=== PATIENT | male | born 1965 | race Caucasian/White ===

== ENCOUNTER 2017-06-20 06:04 | Emergency (ER) | payer MEDICARE, OTHER ==
[2017-06-20] MEDS ORDERED: Sodium Chloride 0.9% 1,000 ML IV STA (06:21)
[2017-06-20 06:22] VITALS: RESP 16
--- NOTE | 2017-06-20 06:24 | C.PDOC ---
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 Patient denies any PMHx, recent sick contact/travel, fever, or chills. Hx obtain via patient care. Chief Complaint (Nursing): Abdominal Pain History Per: Um Nurse History/Exam Limitations: no limitations Onset/Duration Of Symptoms: Hrs Current Symptoms Are (Timing): Still Present Location Of Pain/Discomfort: Epigastric Radiation Of Pain To:: None Quality Of Discomfort: Unable To Describe Associated Symptoms: Nausea, Vomiting Exacerbating Factors: None Alleviating Factors: None Recent travel outside of the [place]: No Past Medical History Reviewed: Historical Data, Nursing Documentation, Vital Signs Vital Signs: Last Vital Signs Temp 98.3 F 06/20/17 06:19 Pulse 69 06/20/17 06:19 Resp 16 06/20/17 06:19 BP 182/98 H 06/20/17 06:19 Pulse Ox 99 06/20/17 06:43 - Medical History PMH: No Chronic Diseases Surgical History: No Surg Hx Family History: States: Unknown Family Hx - Social History Hx Tobacco Use: No Hx Alcohol Use: Yes Hx Substance Use: No - Immunization History Hx Tetanus Toxoid Vaccination: No Hx Influenza Vaccination: No Hx Pneumococcal Vaccination: No Review Of Systems Constitutional: Negative for: Fever, Chills Gastrointestinal: Positive for: Nausea, Vomiting, Abdominal Pain Neurological: Positive for: Dizziness Physical Exam - Physical Exam Appears: Non-toxic, No Acute Distress Skin: Normal Color, Warm, Dry Head: Atraumatic, Normacephalic Eye(s): bilateral: Normal Inspection, PERRL, EOMI Oral Mucosa: Moist Chest: Symmetrical, No Tenderness Cardiovascular: Rhythm Regular, No Murmur Respiratory: Normal Breath Sounds, No Rales, No Rhonchi, No Wheezing Gastrointestinal/Abdominal: Soft, Tenderness (Epigastric) Neurological/Psych: Other (At baseline) ED Course And Treatment - Laboratory Results Result Diagrams: 06/20/17 06:29 O2 Sat by Pulse Oximetry: 99 (Room air) Pulse Ox Interpretation: Normal Progress Note: Head CT, EKG, blood work, CXR, urinalysis, and abdominal US ordered. Pepcid, zofran, and IV fluids administered. Disposition - Disposition Disposition Time: 07:00 Condition: FAIR Forms: [facility] (Gibraltarian) - Clinical Impression Clinical Impression: Nausea, Vomiting, Abdominal pain, Dizziness - Scribe Statement The provider has reviewed the documentation as recorded by the Scribeduar Berry All medical record entries made by the Scribe were at my direction and personally dictated by me. I have reviewed the chart and agree that the record accurately reflects my personal performance of the history, physical exam, medical decision making, and the department course for this patient. I have also personally directed, reviewed, and agree with the discharge instructions and disposition. Physician Patient Turnover Patient Signed Over To: Loren Cullen Handoff Comments: labs, abdominal US and head CT pending
[2017-06-20] MEDS ORDERED: Sodium Chloride 0.9% 1,000 ML ONE (06:28)
[2017-06-20 06:39] LABS: BASO # 0.1 K/uL (0.0-0.2); BASO % 1.4 % (0.0-2.0); EOS # 0.3 K/uL (0.0-0.7); EOS % 5.7 % (0.0-4.0); LYMPH # 2.6 K/uL (1.0-4.3); LYMPH % 49.3 % (20.0-40.0); MEAN CELL VOLUME 81.4 fL (80.0-94.0); MEAN CORPUSCULAR HEMOGLOBIN 26.2 pg (27.0-31.0); MEAN CORPUSCULAR HGB CONC 32.2 g/dL (33.0-37.0); MEAN PLATELET VOLUME 10.5 fL (7.2-11.7); MONO # 0.6 K/uL (0.0-0.8); MONO % 10.9 % (0.0-10.0); NRBC % 0.1 % (0.0-2.0); RED CELL DISTRIBUTION WIDTH 14.2 % (11.5-14.5); WHITE BLOOD COUNT 5.2 K/uL (4.8-10.8)
[2017-06-20 06:46] LABS: ALB/GLOB RATIO 1.3 (1.0-2.1); ALKALINE PHOSPHATASE 71 U/L (38-126); ALT/SGPT 25 U/L (21-72); AMYLASE 158 U/L (30-110); AST/SGOT 23 U/L (17-59); BILIRUBIN,TOTAL 0.4 mg/dL (0.2-1.3); BLOOD UREA NITROGEN 18 mg/dL (9-20); CALCIUM 9.5 mg/dl (8.6-10.4); CARBON DIOXIDE 28 mmol/L (22-30); CHLORIDE 99 mmol/L (98-107); GFR AFRICAN-AMERICAN > 60; GLUCOSE,RANDOM 93 mg/dL (75-110); POTASSIUM 3.7 mmol/L (3.6-5.2); SODIUM 139 mmol/L (132-148); TOTAL PROTEIN 7.4 g/dL (6.3-8.3)
[2017-06-20 06:55] LABS: URINE BILIRUBIN NEGATIVE (NEGATIVE); URINE COLOR STRAW (YELLOW); URINE GLUCOSE (UA) Normal (Normal)
[2017-06-20 06:56] LABS: URINE BLOOD 2+ (NEGATIVE); URINE KETONE NEGATIVE (NEGATIVE); URINE PROTEIN NEGATIVE (NEGATIVE); URINE UROBILINOGEN Normal mg/dL (0.2-1.0)
[2017-06-20 06:57] LABS: RBC URINE 10 /hpf (0-3); URINE LEUKOCYTE ESTERASE NEGATIVE Leu/uL (Negative); WBC URINE 2 /hpf (0-5)
--- NOTE | 2017-06-20 08:50 | CT ---
PROCEDURE: CT HEAD WITHOUT CONTRAST. HISTORY: dizzy, N/V COMPARISON: None available. TECHNIQUE: Axial computed tomography images were obtained through the head/brain without intravenous contrast. Radiation dose: Total exam DLP = 696.77 mGy-cm. This CT exam was performed using one or more of the following dose reduction techniques: Automated exposure control, adjustment of the mA and/or kV according to patient size, and/or use of iterative reconstruction technique. FINDINGS: HEMORRHAGE: No acute parenchymal, subarachnoid nor extra-axial hemorrhage. BRAIN: No evidence of large acute infarct. No obvious parenchymal nor extra-axial masses or collections seen on this noncontrast study. Mild central volume loss evidenced by slight disproportionate enlargement of ventricles as compared sulci. Uppercase move VENTRICLES: No obstructive hydrocephalus CALVARIUM: Calvarium appears grossly intact. PARANASAL SINUSES: Visualized paranasal sinuses currently well-aerated. MASTOID AIR CELLS: Unremarkable as visualized. No inflammatory changes. OTHER FINDINGS: None. IMPRESSION: No acute intracranial hemorrhage. Mild central volume loss.
[2017-06-20 09:01] VITALS: TEMP 97.6
--- NOTE | 2017-06-20 09:31 | US ---
HISTORY: Pain epigastric COMPARISON: None. TECHNIQUE: Sonographic evaluation of the right upper quadrant of the abdomen. FINDINGS: LIVER: Measures approximately 12.8 cm cm in CC dimension . smooth contour and normal echogenicity of the liver parenchyma. No mass. No intrahepatic bile duct dilatation. GALLBLADDER: Gallbladder is physiologically distended. No evidence of intraluminal gallbladder calculi, wall thickening pericholecystic fluid collections or sonographic Levi sign. COMMON BILE DUCT: Measures 3.1 mm. No stones. No dilatation. PANCREAS: Unremarkable as visualized. No mass. No ductal dilatation. RIGHT KIDNEY: Measures approximately 9.6 x 4.9 x 5.1 cm in length. Normal echogenicity. No calculus, mass, or hydronephrosis. AORTA: No aneurysmal dilatation. IVC: Unremarkable. OTHER FINDINGS: None . IMPRESSION: Grossly unremarkable limited right upper quadrant abdominal ultrasound as above.
--- NOTE | 2017-06-20 09:40 | RAD ---
PROCEDURE: CHEST RADIOGRAPH, 1 VIEW HISTORY: dizzy COMPARISON: Comparison chest dated 12/07/2012 FINDINGS: LUNGS: Suspect minor left basilar atelectasis. PLEURA: No pneumothorax or pleural fluid seen. CARDIOVASCULAR: Heart appears mildly enlarged. OSSEOUS STRUCTURES: Minor multilevel degenerative spondylosis of the thoracic spine. Gadiel/ 1st VISUALIZED UPPER ABDOMEN: Normal. OTHER FINDINGS: None. IMPRESSION: Suspect minor left basilar atelectasis.
[2017-06-20 10:39] VITALS: BP 149/97; PULSE 58; O2SAT 99
--- NOTE | 2017-06-22 11:50 | CARD ---
APPROVED REPORT EKG Measurement Heart [id number] <Conclusion> Normal sinus rhythm Normal ECG
== END 2017-06-20 11:48 | disposition home or self-care (01) ==
LOC: C.ER 06:04
DX: R42 Dizziness and giddiness (principal); R11.2 Nausea with vomiting, unspecified; R10.9 Unspecified abdominal pain
CPT/HCPCS: 70450; 71010; 76705; 80053; 81001; 82150; 82550; 82553; 83690; 84484; 85025; 96374; 96375; 99285; J2405; J2765; J7040

== ENCOUNTER 2017-06-23 20:33 | Emergency (ER) | payer MEDICARE, OTHER ==
[2017-06-23 20:48] VITALS: TEMP 98.1
--- NOTE | 2017-06-23 21:03 | C.PDOC ---
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 Patient was seen on 06/20 for the same symptoms and abdominal pain; ABD US and head CT were both negative at that time. Patient states his current headache is similar to prior episodes; he describes it as being constant and generalized. He also notes he "feels hot everywhere"; denies nausea, vomiting, focal weakness, or focal numbness. Patient has not taken any medication for the pain. Hx obtained via counter tender [employer]. VIA GERIATRIC PHYSICAL THERAPIST [id number] RECUR MELCHOR TODAY. SEEN 06/20 FOR SAME AND ABD PAIN. ABD US AND HEAD CT NEG. PS CURRENT MELCHOR SIM TO PRIOR. CONSTANT GENERALIZED. "I FEEL HOT EVERYWHERE". NO NV, FOCAL WEAK NUMB. NO MEDS TRIED FOR MELCHOR. EXAM MILD DIST NONTOXIC HEENT NO PHOTOPHOBIA NO MENINGISMUS NEURO INTACT REMAINDER NEG Time Seen by Provider: 06/23/17 20:39 History Per: Patient History/Exam Limitations: no limitations Onset/Duration Of Symptoms: Days Current Symptoms Are (Timing): Still Present Preceeding Symptoms: None Associated Symptoms: denies: Photophobia, Blurred Vision, Nausea, Vomiting, Extremity Weakness Recent travel outside of the [place]: No Past Medical History Reviewed: Historical Data, Nursing Documentation, Vital Signs Vital Signs: Last Vital Signs Temp 98.1 F 06/23/17 20:47 Pulse 65 06/23/17 21:54 Resp 20 06/23/17 21:54 BP 159/93 H 06/23/17 21:54 Pulse Ox 98 06/23/17 22:01 - Medical History PMH: No Chronic Diseases Surgical History: No Surg Hx Family History: States: Unknown Family Hx - Social History Hx Tobacco Use: No Hx Alcohol Use: Yes Hx Substance Use: No - Immunization History Hx Tetanus Toxoid Vaccination: No Hx Influenza Vaccination: No Hx Pneumococcal Vaccination: No Review Of Systems Constitutional: Negative for: Fever, Chills Eyes: Negative for: Vision Change Gastrointestinal: Negative for: Nausea, Vomiting Neurological: Positive for: Headache. Negative for: Weakness, Numbness, Dizziness Physical Exam - Physical Exam Appears: Non-toxic, Other (Mild distress) Skin: Normal Color, Warm, Dry Head: Atraumatic, Normacephalic Eye(s): bilateral: Normal Inspection, PERRL, EOMI Oral Mucosa: Moist Neck: Normal, Supple (Nonmeningismus) Chest: Symmetrical, No Tenderness Cardiovascular: Rhythm Regular, No Murmur Respiratory: No Accessory Muscle Use, No Wheezing Gastrointestinal/Abdominal: Soft, No Tenderness Neurological/Psych: Oriented x3, Normal Cognition, Normal Motor, Normal Sensation, Other (No focal deficits) ED Course And Treatment O2 Sat by Pulse Oximetry: 98 (Room air) Pulse Ox Interpretation: Normal Progress - Re-Evaluation Re-evaluation Note: 06/23/17 23:19 FEELS BETTER. NEURO INTACT. VSS - Data Reviewed Data Reviewed: Diagnostic imaging, Old records Medical Decision Making Medical Decision Making: Plan: * Toradol * Reglan * Tylenol Disposition Counseled Patient/Family Regarding: Studies Performed, Diagnosis, Need For Followup, Rx Given - Disposition Referrals: [facility] [Outside] [facility] [Outside] Disposition: HOME/ ROUTINE Disposition Time: 23:19 Condition: IMPROVED Additional Instructions: YOU MUST FOLLOW UP IN CLINIC. CALL TO MAKE AN APPOINTMENT. Prescriptions: Acetaminophen [Tylenol Extra Strength] 2 tab PO Q6 #30 tablet Ibuprofen [Motrin] 400 mg PO QID #30 tab Instructions: Acute Headache (ED) Forms: [facility] (Bermudian) - Clinical Impression Clinical Impression: Headache - Scribe Statement The provider has reviewed the documentation as recorded by the Scribeduar Berry All medical record entries made by the Scribe were at my direction and personally dictated by me. I have reviewed the chart and agree that the record accurately reflects my personal performance of the history, physical exam, medical decision making, and the department course for this patient. I have also personally directed, reviewed, and agree with the discharge instructions and disposition.
[2017-06-23 21:55] VITALS: BP 159/93; PULSE 65; RESP 20
[2017-06-23 21:56] VITALS: O2SAT 98
--- NOTE | 2017-06-23 22:46 | CT ---
EXAM: CT Head Without Intravenous Contrast CLINICAL HISTORY: 52 years old, male; Pain; Headache; Headache not specified; Additional info: Persist MELCHOR please compare w 06/20 TECHNIQUE: Axial computed tomography images of the head/brain without intravenous contrast. All CT scans at this facility use one or more dose reduction techniques, viz.: automated exposure control; ma/kV adjustment per patient size (including targeted exams where dose is matched to indication; i.e. head); or iterative reconstruction technique. COMPARISON: No relevant prior studies available. FINDINGS: Brain: Mild atrophy. No intracranial hemorrhage. No mass. No definite edema. Ventricles: No hydrocephalus. Bones/joints: No acute fracture. Soft tissues: Unremarkable. Sinuses: No acute sinusitis. Mastoid air cells: No mastoid effusion. Orbits: Unremarkable as visualized. IMPRESSION: 1. No definite acute intracranial abnormality. 2. If symptoms persist, consider MRI for further evaluation.
== END 2017-06-23 23:30 | disposition home or self-care (01) ==
LOC: C.ER 20:33
DX: R51 Headache (principal)
CPT/HCPCS: 70450; 96372; 99284; J1885; J2765

== ENCOUNTER 2018-02-06 15:25 | Emergency (ER) | payer MEDICARE, OTHER ==
[2018-02-06 16:10] LABS: BASO % 0.8 % (0.0-2.0); EOS # 0.2 K/uL (0.0-0.7); EOS % 4.4 % (0.0-4.0); HEMOGLOBIN 13.6 g/dL (12.0-18.0); LYMPH # 1.5 K/uL (1.0-4.3); MEAN CELL VOLUME 82.6 fL (80.0-94.0); MEAN CORPUSCULAR HEMOGLOBIN 27.3 pg (27.0-31.0); MEAN PLATELET VOLUME 10.2 fL (7.2-11.7); MONO # 0.5 K/uL (0.0-0.8); MONO % 10.7 % (0.0-10.0); NEUT # 2.8 K/uL (1.8-7.0); NEUT % 54.1 % (50.0-75.0); RBC 4.97 Mil/uL (4.40-5.90); RED CELL DISTRIBUTION WIDTH 14.2 % (11.5-14.5); WHITE BLOOD COUNT 5.1 K/uL (4.8-10.8)
[2018-02-06 16:22] LABS: ALB/GLOB RATIO 1.2 (1.0-2.1); ALBUMIN 4.3 g/dL (3.5-5.0); ALT/SGPT 23 U/L (21-72); AST/SGOT 26 U/L (17-59); BLOOD UREA NITROGEN 12 mg/dL (9-20); GFR AFRICAN-AMERICAN > 60; GFR NON-AFRICAN AMERICAN > 60
[2018-02-06 16:29] VITALS: RESP 18
[2018-02-06 17:38] VITALS: BP 123/96; PULSE 74; TEMP 98; O2SAT 98
--- NOTE | 2018-02-06 17:52 | C.PDOC ---
History Of Present Illness 52 year old male, with no significant PMHx, presents to the ED for evaluation of sharp chest pain which began at 1300 today. Patient states he was slightly dizzy during the onset of symptoms. Patient states he is currently asymptomatic and denies cough, abdominal pain, nausea, and vomiting. Chief Complaint (Nursing): Chest Pain History Per: Gis Professor History/Exam Limitations: other (patient is deaf/mute) Current Symptoms Are (Timing): Gone Quality: Sharp, "Pain" Associated Symptoms: denies: Nausea Additional History Per: Patient Past Medical History Reviewed: Historical Data, Nursing Documentation, Vital Signs Vital Signs: Last Vital Signs Temp 98 F 02/06/18 17:37 Pulse 74 02/06/18 17:37 Resp 18 02/06/18 17:37 BP 123/96 H 02/06/18 17:37 Pulse Ox 98 02/06/18 18:01 - Medical History PMH: No Chronic Diseases Surgical History: No Surg Hx Family History: States: Unknown Family Hx - Social History Hx Tobacco Use: No Hx Alcohol Use: No Hx Substance Use: No - Immunization History Hx Tetanus Toxoid Vaccination: No Hx Influenza Vaccination: No Hx Pneumococcal Vaccination: No Review Of Systems Cardiovascular: Positive for: Chest Pain Respiratory: Negative for: Cough Gastrointestinal: Negative for: Nausea, Vomiting, Abdominal Pain Neurological: Positive for: Dizziness Physical Exam - Physical Exam Appears: Non-toxic, No Acute Distress Skin: Normal Color, Warm, Dry Head: Atraumatic, Normacephalic Eye(s): bilateral: Normal Inspection Oral Mucosa: Moist Neck: Supple Chest: Symmetrical, No Deformity, No Tenderness Cardiovascular: Rhythm Regular, No Murmur Respiratory: Normal Breath Sounds, No Rales, No Rhonchi, No Wheezing Extremity: Normal ROM, Capillary Refill (less than 2 seconds ) Neurological/Psych: Oriented x3, Normal Speech, Normal Cognition ED Course And Treatment - Laboratory Results Result Diagrams: 02/06/18 16:05 02/06/18 16:05 ECG: Interpreted By Me, Viewed By Me ECG Rhythm: Sinus Rhythm Interpretation Of ECG: Normal Sinus Rhythm at 75bpm. Rate From EC O2 Sat by Pulse Oximetry: 98 (on RA) Pulse Ox Interpretation: Normal Medical Decision Making Medical Decision Making: Impression: 52 year old male with chest pain Plan: * bloodwork * CXR * EKG * reassess and disposition Progress: bloodwork, CXR, and EKG ordered and reviewed. Disposition - Disposition Referrals: [facility] [Outside] [facility] [Outside] Disposition: HOME/ ROUTINE Disposition Time: 17:00 Condition: GOOD Additional Instructions: Thank you for letting us take care of you today. The emergency medical care you received today was directed at your acute symptoms. If you were prescribed any medication, please fill it and take as directed. It may take several days for your symptoms to resolve. Return to the Emergency Department if your symptoms worsen, do not improve, or if you have any other problems. Please contact your doctor or call one of the physicians/clinics you have been referred to that are listed on the Patient Visit Information form that is included in your discharge packet. Bring any paperwork you were given at discharge with you along with any medications you are taking to your follow up visit. Our treatment cannot replace ongoing medical care by a primary care provider (PCP) outside of the emergency department. Thank you for allowing the [email or web address] team to be part of your care today. Follow up with the clinic in 3-4 days for outpatient care. Instructions: Chest Pain That Is Not Caused by the Heart (DC) Forms: [facility] (Divehi) - Clinical Impression Clinical Impression: Non-cardiac chest pain - Scribe Statement The provider has reviewed the documentation as recorded by the Scribe (Stephanie Badillo) Provider Attestation: All medical record entries made by the Scribe were at my direction and personally dictated by me. I have reviewed the chart and agree that the record accurately reflects my personal performance of the history, physical exam, medical decision making, and the department course for this patient. I have also personally directed, reviewed, and agree with the discharge instructions and disposition.
--- NOTE | 2018-02-06 18:56 | RAD ---
PROCEDURE: CHEST RADIOGRAPH, 1 VIEW HISTORY: chest pain COMPARISON: 06/20/2017 FINDINGS: LUNGS: Clear. PLEURA: No pneumothorax or pleural fluid seen. CARDIOVASCULAR: No radiographic findings to suggest acute or significant cardiovascular disease. OSSEOUS STRUCTURES: No significant abnormalities. VISUALIZED UPPER ABDOMEN: Normal. OTHER FINDINGS: None. IMPRESSION: No active disease. No acute/significant interval changes.
--- NOTE | 2018-02-07 12:14 | CARD ---
APPROVED REPORT EKG Measurement Heart [id number] <Conclusion> Normal sinus rhythm Normal ECG
== END 2018-02-06 17:38 | disposition home or self-care (01) ==
LOC: C.ER 15:25
DX: R07.89 Other chest pain (principal)

== ENCOUNTER 2018-05-12 15:15 | Emergency (ER) | payer MEDICARE, OTHER ==
[2018-05-12] MEDS ORDERED: Sodium Chloride 0.9% 1,000 ML IV ONE (16:30)
[2018-05-12 16:59] LABS: BASO # 0.1 K/uL (0.0-0.2); BASO % 1.1 % (0.0-2.0); EOS # 0.1 K/uL (0.0-0.7); EOS % 1.6 % (0.0-4.0); LYMPH # 1.8 K/uL (1.0-4.3); LYMPH % 29.9 % (20.0-40.0); MEAN CELL VOLUME 82.3 fL (80.0-94.0); MEAN CORPUSCULAR HEMOGLOBIN 27.1 pg (27.0-31.0); MEAN CORPUSCULAR HGB CONC 32.9 g/dL (33.0-37.0); MEAN PLATELET VOLUME 10.4 fL (7.2-11.7); MONO # 0.6 K/uL (0.0-0.8); MONO % 10.7 % (0.0-10.0); NEUT # 3.4 K/uL (1.8-7.0); NEUT % 56.7 % (50.0-75.0); RBC 5.17 Mil/uL (4.40-5.90); RED CELL DISTRIBUTION WIDTH 14.1 % (11.5-14.5); WHITE BLOOD COUNT 5.9 K/uL (4.8-10.8)
[2018-05-12] MEDS ORDERED: Iohexol 300 100 ML IJ ONE (17:07)
[2018-05-12] MEDS ORDERED: Morphine 4 MG/ML VIAL ONE (17:11)
[2018-05-12] MEDS ORDERED: Sodium Chloride 0.9% 1,000 ML ONE (17:11)
[2018-05-12 17:17] LABS: ALB/GLOB RATIO 1.5 (1.0-2.1); ALBUMIN 4.7 g/dL (3.5-5.0); ALT/SGPT 35 U/L (21-72); AST/SGOT 37 U/L (17-59); BLOOD UREA NITROGEN 13 mg/dL (9-20); CALCIUM 9.6 mg/dl (8.6-10.4); GFR AFRICAN-AMERICAN > 60; GFR NON-AFRICAN AMERICAN > 60; LIPASE 156 U/L (23-300)
[2018-05-12 17:33] LABS: URINE BACTERIA RARE (<OCC); URINE BILIRUBIN NEGATIVE (NEGATIVE); URINE CLARITY Clear (Clear); URINE COLOR Yellow (YELLOW); URINE GLUCOSE (UA) NORMAL (Normal); URINE LEUKOCYTE ESTERASE NEG Leu/uL (Negative); URINE PROTEIN NEGATIVE (NEGATIVE); URINE UROBILINOGEN NORMAL mg/dL (0.2-1.0)
[2018-05-12 17:36] LABS: URINE BLOOD 3+ (NEGATIVE)
--- NOTE | 2018-05-12 17:44 | C.PDOC ---
History Of Present Illness 53 y/o male presents to the ED with complaints of a dry throat, non-productive cough, left-sided chest pain that began earlier today (now resolved), and currently RLQ pain that is constant and nonradiating. He denies associated vomiting, diarrhea, shortness of breath, dysuria/hematuria, fever, testicular pain. Time Seen by Provider: 05/12/18 16:15 Chief Complaint (Nursing): Abdominal Pain History Per: [employer]ios[employer] Operator (sign language, pt mute/deaf) History/Exam Limitations: no limitations Onset/Duration Of Symptoms: Days Current Symptoms Are (Timing): Still Present Past Medical History Reviewed: Historical Data, Nursing Documentation, Vital Signs Vital Signs: Last Vital Signs Temp 98.3 F 05/12/18 15:35 Pulse 67 05/12/18 17:23 Resp 18 05/12/18 17:23 BP 158/99 H 05/12/18 17:23 Pulse Ox 100 05/12/18 18:57 - Medical History Other PMH: Deafness Surgical History: No Surg Hx Family History: States: No Known Family Hx - Social History Hx Tobacco Use: No Hx Alcohol Use: Yes Hx Substance Use: No - Immunization History Hx Tetanus Toxoid Vaccination: No Hx Influenza Vaccination: No Hx Pneumococcal Vaccination: No Review Of Systems Constitutional: Negative for: Fever ENT: Positive for: Throat Pain (dry throat) Cardiovascular: Positive for: Chest Pain (now resolved) Respiratory: Positive for: Cough. Negative for: Shortness of Breath, Sputum Gastrointestinal: Positive for: Abdominal Pain (RLQ/right groin). Negative for : Vomiting, Diarrhea Genitourinary: Negative for: Dysuria Physical Exam - Physical Exam Appears: Well, Non-toxic, Other (in mild pain) Skin: Normal Color, Warm, Dry, No Rash Eye(s): bilateral: Normal Inspection Oral Mucosa: Moist Throat: Normal, No Erythema, No Exudate Neck: Supple Cardiovascular: Rhythm Regular Respiratory: Normal Breath Sounds, No Rales, No Rhonchi, No Wheezing Gastrointestinal/Abdominal: Soft, Tenderness ((+) RLQ and right inguinal TTP), No Guarding, No Rebound, Other (Area of mild swelling to right inguinal area, ? hernia, with no erythema or skin changes) Back: Normal Inspection, No CVA Tenderness Extremity: Bilateral: Atraumatic, Normal ROM Neurological/Psych: Oriented x3 ED Course And Treatment - Laboratory Results Result Diagrams: 05/12/18 16:56 05/12/18 16:56 O2 Sat by Pulse Oximetry: 100 (RA) Pulse Ox Interpretation: Normal - CT Scan/US ct abd/pelvis Other Rad Studies (CT/US): Read By Radiologist, Radiology Report Reviewed CT/US Interpretation: Dictator : Jayme Noyola MD. Pet House Sitter : Accredited Pharmacy Technician : Jayme Noyola MD. Approver2 : Report Date : 05/12/2018 18:46: 43. My Comment : . Date of service: 05/12/2018. PROCEDURE: CT Abdomen and Pelvis with contrast. HISTORY: rlq pain r/o appy vs inguinal hernia. COMPARISON: Comparison is made to the previous study dated 12/27/2015. TECHNIQUE: Contrast dose: 100 cc of Omnipaque 300. . Axial and reformatted coronal sagittal CT images of the abdomen and pelvis were obtained after IV contrast administration. Radiation dose: Total exam DLP = 231.91 mGy-cm. This CT exam was performed using one or more of the following dose reduction techniques: Automated exposure control, adjustment of the mA and/or kV according to patient size, and/or use of iterative reconstruction technique. FINDINGS: LOWER THORAX: Unremarkable. LIVER: Unremarkable. No gross lesion or ductal dilatation. GALLBLADDER AND BILE DUCTS: Unremarkable. PANCREAS: Unremarkable. No gross lesion or ductal dilatation. SPLEEN: Unremarkable. ADRENALS: Unremarkable. No mass. KIDNEYS AND URETERS: Unremarkable. No hydronephrosis. No solid mass. VASCULATURE: Unremarkable. No aortic aneurysm. BOWEL: The assessment of the GI system is suboptimal without oral contrast administration. 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 There is filling defect in the cecum which represent large fecal ball versus mass lesion. No evidence of small bowel obstruction. Colonic diverticulosis are seen diffusely in the large bowel without definite evidence of diverticulitis. APPENDIX: No evidence of appendicitis. The appendix is normal in size and shape. PERITONEUM : Unremarkable. No free fluid. No free air. LYMPH NODES: Unremarkable. No enlarged lymph nodes. BLADDER: Mild urinary bladder wall thickening. REPRODUCTIVE: Prostate is enlarged. BONES: No acute fracture. OTHER FINDINGS : None. IMPRESSION: No evidence of appendicitis. Suspicious for cecal wall pneumatosis. Large fecal ball versus less likely mass at the cecum. If clinically warranted follow-up assessment of the large bowel by barium enema or colonoscopy. Colonic diverticulosis without evidence of diverticulitis. Progress Note: Blood work, UA, CT scan abd/pelvis with IV contrast ordered and reviewed. Patient given IV NS bolus, IV morphine, IV zofran. 6:50pm- Spoke with Dr. Chavis about CT scan result, would like surgery resident to come evaluate patient. Resident paged. Disposition - Disposition Disposition Time: 19:00 Condition: STABLE Forms: [facility] (Kenyan) - Clinical Impression Clinical Impression: RLQ abdominal pain, Pneumatosis of intestines - Scribe Statement The provider has reviewed the documentation as recorded by the Tonny Perez Provider Attestation: All medical record entries made by the Tonny were at my direction and personally dictated by me. I have reviewed the chart and agree that the record accurately reflects my personal performance of the history, physical exam, medical decision making, and the department course for this patient. I have also personally directed, reviewed, and agree with the discharge instructions and disposition. Physician Patient Turnover Patient Signed Over To: Ortega Guillermo Handoff Comments: pending eval by surgical team
--- NOTE | 2018-05-12 18:48 | CT ---
Date of service: 05/12/2018 PROCEDURE: CT Abdomen and Pelvis with contrast HISTORY: rlq pain r/o appy vs inguinal hernia COMPARISON: Comparison is made to the previous study dated 12/27/2015 TECHNIQUE: Contrast dose: 100 cc of Omnipaque 300. . Axial and reformatted coronal sagittal CT images of the abdomen and pelvis were obtained after IV contrast administration. Radiation dose: Total exam DLP = 231.91 mGy-cm. This CT exam was performed using one or more of the following dose reduction techniques: Automated exposure control, adjustment of the mA and/or kV according to patient size, and/or use of iterative reconstruction technique. FINDINGS: LOWER THORAX: Unremarkable. LIVER: Unremarkable. No gross lesion or ductal dilatation. GALLBLADDER AND BILE DUCTS: Unremarkable. PANCREAS: Unremarkable. No gross lesion or ductal dilatation. SPLEEN: Unremarkable. ADRENALS: Unremarkable. No mass. KIDNEYS AND URETERS: Unremarkable. No hydronephrosis. No solid mass. VASCULATURE: Unremarkable. No aortic aneurysm. BOWEL: The assessment of the GI system is suboptimal without oral contrast administration. 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 There is filling defect in the cecum which represent large fecal ball versus mass lesion. No evidence of small bowel obstruction. Colonic diverticulosis are seen diffusely in the large bowel without definite evidence of diverticulitis. APPENDIX: No evidence of appendicitis. The appendix is normal in size and shape. PERITONEUM: Unremarkable. No free fluid. No free air. LYMPH NODES: Unremarkable. No enlarged lymph nodes. BLADDER: Mild urinary bladder wall thickening. REPRODUCTIVE: Prostate is enlarged. BONES: No acute fracture. OTHER FINDINGS: None. IMPRESSION: No evidence of appendicitis. Suspicious for cecal wall pneumatosis. Large fecal ball versus less likely mass at the cecum. If clinically warranted follow-up assessment of the large bowel by barium enema or colonoscopy. Colonic diverticulosis without evidence of diverticulitis.
[2018-05-12] MEDS ORDERED: Iohexol 240 (50 ml) PO ONE (20:04)
[2018-05-12] MEDS ORDERED: Iohexol 240 (50 ml) ONE (20:54)
--- NOTE | 2018-05-12 20:55 | CP.PCM.CON ---
History of Present Illness - History of Present Illness History of Present Illness: Surgery: Dr. 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 hot car charger was used. However pt would frequently answer questions incorrectly or inappropriately. Pt presented to ED today w. acute onset of R sided abd pain. The pain is constant and sharp. Pt states that he has had this pain in the past and it resolved on its own in a few hours. Pt denies N/V. No changes in appetite. No flatus or BM for 3-[address] done in ED showed questionable pneumotosis in cecum and questionable mass. When pt was seen in the ED, he states that his symptoms had completely resolved and he had no further complaints. Pt states that he has never had a colonoscopy. PMH: deaf PSH: R inguinal hernia Meds: MAR reviewed NKDA Social: No ETOH/Tobacco/Drugs Fhx: No fhx of colorectal CA Review of Systems - Review of Systems Systems not reviewed;Unavailable: Language Barrier, Other (deaf, per director of sustainable design, pt was not always answering questions appropriately) Past Patient History - Infectious Disease Hx of Infectious Diseases: None - Past Social History Smoking Status: Never Smoked - HEENT Hx Deafness: Yes - PSYCHIATRIC Hx Substance Use: No - SURGICAL HISTORY Hx Surgeries: No - ANESTHESIA Hx Anesthesia: No Meds Allergies/Adverse Reactions: Allergies Allergy/AdvReac Type Severity Reaction Status Date / Time No Known Allergies Allergy Verified 05/12/18 15:49 Physical Exam - Constitutional Appears: Non-toxic, No Acute Distress - Head Exam Head Exam: ATRAUMATIC, NORMOCEPHALIC - Eye Exam Eye Exam: EOMI - ENT Exam ENT Exam: Mucous Membranes Moist - Neck Exam Neck exam: Positive for: Full Rom - Respiratory Exam Respiratory Exam: NORMAL BREATHING PATTERN. absent: Accessory Muscle Use, Respiratory Distress - GI/Abdominal Exam GI & Abdominal Exam: Soft, Tenderness (RLQ). absent: Distended, Firm, Guarding , Rebound, Rigid - Extremities Exam Extremities exam: Negative for: calf tenderness, pedal edema - Neurological Exam Neurological exam: Alert, Oriented x3 - Psychiatric Exam Psychiatric exam: Normal Affect, Normal Mood - Skin Skin Exam: Dry, Normal Color, Warm Results - Vital Signs Recent Vital Signs: Last Vital Signs Temp 98.3 F 05/12/18 19:29 Pulse 65 05/12/18 19:29 Resp 16 07/20/18 19:29 BP 149/93 H 05/12/18 19:29 Pulse Ox 98 05/12/18 19:29 - Labs Result Diagrams: 05/12/18 16:56 05/12/18 16:56 Labs: Laboratory Results - last 24 hr 05/12/18 05/12/18 05/12/18 16:56 16:56 17:18 WBC 5.9 RBC 5.17 Hgb 14.0 Hct 42.6 MCV 82.3 MCH 27.1 MCHC 32.9 L RDW 14.1 Plt Count 187 MPV 10.4 Neut % (Auto) 56.7 Lymph % (Auto) 29.9 [place] % (Auto) 10.7 H Eos % (Auto) 1.6 Baso % (Auto) 1.1 Neut # (Auto) 3.4 Lymph # (Auto) 1.8 [place] # (Auto) 0.6 Eos # (Auto) 0.1 Baso # (Auto) 0.1 Sodium 141 Potassium 4.3 Chloride 101 Carbon Dioxide 32 H Anion Gap 13 BUN 13 Creatinine 1.1 Est GFR ( Amer) > 60 Est GFR (Non-Af Amer) > 60 Random Glucose 98 Calcium 9.6 Total Bilirubin 0.2 AST 37 ALT 35 Alkaline Phosphatase 73 Total Protein 7.7 Albumin 4.7 Globulin 3.1 Albumin/Globulin Ratio 1.5 Lipase 156 Urine Color Yellow Urine Clarity Clear Urine pH 7.0 Ur Specific [place] 1.017 Urine Protein Negative Urine Glucose (UA) Normal Urine Ketones Negative Urine Blood 3+ H Urine Nitrate Negative Urine Bilirubin Negative Urine Urobilinogen Normal Ur Leukocyte Esterase Neg Urine WBC (Auto) < 1 Urine RBC (Auto) 25 H Urine Bacteria Rare - Imaging and Cardiology CT scan - abdomen Status: Image reviewed by me, Report reviewed by me Assessment & Plan - Assessment and Plan (Free Text) Assessment: 53M w. abdominal pain, currently resolved -CT w. PO contrast- fat containing spigelian hernia -Pt clear for D/C from surgical standpoint -Pt can f/u with Dr. Chavis in office to have hernia addressed electively -d/w attending Irma PGY4
[2018-05-12 23:24] VITALS: BP 142/76; PULSE 75; RESP 18; TEMP 98.1; O2SAT 99
--- NOTE | 2018-05-13 12:15 | CT ---
Date of service: 05/12/2018 PROCEDURE: CT Abdomen and Pelvis with contrast HISTORY: right sided lower abd pain COMPARISON: Abdomen and pelvis CT with contrast 05/12/2018 6:13 p.m.. TECHNIQUE: Helical CT of the abdomen and pelvis was performed following oral contrast administration. Intravenous contrast was not administered as per referring physician request. Contrast dose: None Radiation dose: Total exam DLP = 225.40 mGy-cm. This CT exam was performed using one or more of the following dose reduction techniques: Automated exposure control, adjustment of the mA and/or kV according to patient size, and/or use of iterative reconstruction technique. FINDINGS: LOWER THORAX: Unremarkable. LIVER: Unremarkable. No gross lesion or ductal dilatation. GALLBLADDER AND BILE DUCTS: There is vicarious excretion of iodinated contrast material within the gallbladder lumen which is otherwise unremarkable appearing. PANCREAS: Unremarkable. No gross lesion or ductal dilatation. SPLEEN: Unremarkable. ADRENALS: Unremarkable. No mass. KIDNEYS AND URETERS: Normal excretion of previous the administered iodinated contrast material in prior abdomen and pelvis CT exam from 05/12/2018 6:13 p.m.. No hydronephrosis. No solid mass. VASCULATURE: Unremarkable. No aortic aneurysm. BOWEL: Normal-appearing stomach. No bowel air tract obstruction appreciated. Occasional colonic diverticulosis without diverticulitis. Retained fecal material remains at the cecum however pneumatosis pattern is not identified currently. No definite mass is evident either. APPENDIX: Normal appendix. PERITONEUM: Unremarkable. No free fluid. No free air. LYMPH NODES: Unremarkable. No enlarged lymph nodes. BLADDER: Unremarkable. REPRODUCTIVE: Unremarkable. BONES: No acute fracture. OTHER FINDINGS: A small Spigelian hernia is noted right lower quadrant containing only mesenteric fat. IMPRESSION: 1. Nonacute abdomen pelvis CT exam without IV contrast. A small spigelian hernia is seen the right lower quadrant and only mesenteric fat. 2. Prior pattern of cecal pneumatosis is not identified this time. Prominent retained fecal material is appreciated instead. One skin, no CT evidence to suggest appendicitis at this time. Occasional colonic diverticular changes without diverticulitis. Concordant preliminary report from [facility], 05/12/2018.
== END 2018-05-12 23:24 | disposition home or self-care (01) ==
LOC: C.ER 15:15
DX: K43.9 Ventral hernia without obstruction or gangrene (principal); R10.31 Right lower quadrant pain
CPT/HCPCS: 74176; 74177; 80053; 81001; 83690; 85025; 96361; 96374; 96375; 99285; J2270; J2405; J7030; Q9966; Q9967

== ENCOUNTER 2018-06-02 08:34 | Day surgery (SDC) | payer MEDICARE, OTHER ==
[2018-06-02] MEDS ORDERED: Lactated Ringer's 1,000 ML IV ONE (10:10)
[2018-06-02] MEDS ORDERED: Propofol 10 mg/ml Inj (20 ML) ONE (10:17)
[2018-06-02] MEDS ORDERED: Midazolam 2 MG/2 ML VIAL ONE (10:17)
[2018-06-02] MEDS ORDERED: ceFAZolin IV 1 gm in Dextrose 1 GM/50 ML BAG IVPB ONE (10:18)
[2018-06-02] MEDS ORDERED: Bupivacaine-Epi 0.5%-1:200,000 PF Inj ONE (10:19)
[2018-06-02] MEDS ORDERED: Neostigmine Methylsulfate 3mg/3ml Syringe IV ONE (11:09)
--- NOTE | 2018-06-02 11:30 | PCM.SURG1 ---
Surgeon's Initial Post Op Note - Surgeon's Notes Surgeon: Partha Meat Department Manager: Irma PGY4 Type of Anesthesia: General Endo, Local Pre-Operative Diagnosis: R spigelian hernia Operative Findings: fat containing hernia Post-Operative Diagnosis: same Operation Performed: open R spigelian hernia repair with mesh Specimen/Specimens Removed: hernia sac Estimated Blood Loss: EBL {In ML}: 20 Blood Products Given: N/A Drains Used: No Drains Post-Op Condition: Good Date of Surgery/Procedure: 06/02/18 Time of Surgery/Procedure: 11:29
[2018-06-02] MEDS ORDERED: HYDROmorphone 0.5 mg/0.5 ml ISec IVP PRN (11:32)
[2018-06-02 13:29] VITALS: O2SAT 100
[2018-06-02] MEDS ORDERED: Oxycodone/Acetaminophen 5/325 mg Tab PO STA (13:44)
[2018-06-02 15:20] VITALS: BP 125/74; PULSE 70; RESP 18; TEMP 97.8
--- NOTE | 2018-06-02 20:19 | OP ---
Copied To: Amado Chavis MD Attending MD: Amado Chavis MD PROCEDURE DATE: 06/02/2018 PREOPERATIVE DIAGNOSIS: Right spigelian hernia. POSTOPERATIVE DIAGNOSIS: Right spigelian hernia. PROCEDURE PERFORMED: Repair of right spigelian hernia. FINDINGS: There is a large incarcerated properitoneal fat located on the right side just above the arcuate line. This hernia is way above the internal ring area and there is a defect in the fascia allowing this properitoneal fat to protrude through. This properitoneal fat measures approximately 6 x 3 cm in size. ESTIMATED BLOOD LOSS: 10 mL DESCRIPTION OF PROCEDURE: Under general anesthesia, patient was prepared and draped in usual sterile fashion. Marcaine with epinephrine was injected on the incision site which is little above the normal incision for an inguinal hernia. The incision was extended down to the subcutaneous tissue. Bleeders were controlled with electrocautery. Immediately the incarcerated properitoneal fat was encountered. This was mobilized all the way down to its opening in the defect in the fascia. This was then transected at the base and ligated with 2 ligatures of 0 Vicryl. The remaining portion was then placed back in the peritoneal cavity, making sure that there was no bleeding in the replaced properitoneal fat. The opening in the fascia was then closed utilizing multiple interrupted sutures of 0 Prolene and then the fascia was reinforced with the onlay portion of the mesh and this was secured to the fascia with multiple sutures of 0 Prolene. Subcutaneous tissue was then closed utilizing multiple interrupted sutures of 2-0 Vicryl and the skin was closed with subcuticular suture of 4-0 Monocryl. Estimated blood loss about 10 mL. Patient tolerated the procedure quite well, left the operating room in good condition. Amado Chavis MD
== END 2018-06-02 15:10 | disposition home or self-care (01) ==
LOC: C.SDS 08:34
PROVIDERS: ATTEND Surgery
DX: K43.9 Ventral hernia without obstruction or gangrene (principal)
CPT/HCPCS: 49561; 49568; 88302; J0690; J1170; J1885; J2250; J2405; J2704; J2710; J3010; J7120

== ENCOUNTER 2018-06-05 13:25 | Emergency (ER) | payer MEDICARE, OTHER ==
[2018-06-05 14:34] VITALS: BMI 22.6
[2018-06-05 14:37] LABS: URINE BILIRUBIN NEGATIVE (NEGATIVE); URINE BLOOD 2+ (NEGATIVE); URINE CLARITY Clear (Clear); URINE COLOR Straw (YELLOW); URINE GLUCOSE (UA) NORMAL (Normal); URINE LEUKOCYTE ESTERASE NEG Leu/uL (Negative); URINE PROTEIN NEGATIVE (NEGATIVE); URINE UROBILINOGEN NORMAL mg/dL (0.2-1.0)
[2018-06-05 15:00] LABS: BASO % 0.5 % (0.0-2.0); EOS # 0.2 K/uL (0.0-0.7); EOS % 2.6 % (0.0-4.0); HEMOGLOBIN 13.6 g/dL (12.0-18.0); LYMPH # 1.3 K/uL (1.0-4.3); LYMPH % 21.4 % (20.0-40.0); MEAN CELL VOLUME 82.3 fL (80.0-94.0); MEAN CORPUSCULAR HEMOGLOBIN 27.2 pg (27.0-31.0); MEAN CORPUSCULAR HGB CONC 33.1 g/dL (33.0-37.0); MEAN PLATELET VOLUME 10.4 fL (7.2-11.7); MONO # 0.6 K/uL (0.0-0.8); MONO % 10.7 % (0.0-10.0); NEUT # 3.8 K/uL (1.8-7.0); NEUT % 64.8 % (50.0-75.0); RBC 4.99 Mil/uL (4.40-5.90); RED CELL DISTRIBUTION WIDTH 13.7 % (11.5-14.5); WHITE BLOOD COUNT 5.9 K/uL (4.8-10.8)
--- NOTE | 2018-06-05 15:05 | C.PDOC ---
History Of Present Illness 53 yo male c/o abdominal pain associated with bloating for 4 days. PT had a hernia repair on 06/02/[address] Chavis. Since then, he has been having increasing pain to the location, no BM or flatulence. (+) nausea. Notes that feels like he needs to have a BM but is unable to go. Denies vomiting, fever, discharge or bleeding from the site, back pain, headache, chest pain , or sob. Pt is a deaf mute. Paper Sorter And Counter Proenza Schouerracom used. Time Seen by Provider: 06/05/18 13:43 Chief Complaint (Nursing): Abdominal Pain History Per: Patient History/Exam Limitations: no limitations Onset/Duration Of Symptoms: Days Current Symptoms Are (Timing): Still Present Location Of Pain/Discomfort: RLQ Associated Symptoms: Nausea, Constipation Last Bowel Movement: Days Ago (4) Past Medical History Vital Signs: Last Vital Signs Temp 98.1 F 06/05/18 18:10 Pulse 85 06/05/18 18:10 Resp 18 06/05/18 18:10 BP 158/100 H 06/05/18 18:10 Pulse Ox 97 06/05/18 18:13 - Medical History PMH: Denies: Chronic Kidney Disease Family History: States: Unknown Family Hx - Social History Hx Tobacco Use: No Hx Alcohol Use: Yes Hx Substance Use: No - Immunization History Hx Tetanus Toxoid Vaccination: No Hx Influenza Vaccination: No Hx Pneumococcal Vaccination: No Review Of Systems Except As Marked, All Systems Reviewed And Found Negative. Gastrointestinal: Positive for: Nausea, Abdominal Pain, Constipation Physical Exam - Physical Exam Appears: Well, Non-toxic, No Acute Distress Skin: Normal Color, Warm, Dry Head: Atraumatic, Normacephalic Eye(s): bilateral: Normal Inspection, PERRL, EOMI Nose: Normal Oral Mucosa: Moist Neck: Normal, Normal ROM, Supple Chest: Symmetrical Cardiovascular: Rhythm Regular Respiratory: Normal Breath Sounds Gastrointestinal/Abdominal: Tenderness (TTP RLQ), Distention Back: Normal Inspection Extremity: Normal ROM Neurological/Psych: Oriented x3, Normal Speech ED Course And Treatment - Laboratory Results Result Diagrams: 06/05/18 14:54 06/05/18 14:54 O2 Sat by Pulse Oximetry: 97 - Other Rad Abdomen obstructive series X-Ray: Viewed By Me, Read By Radiologist Interpretation: FINDINGS: CHEST: Lungs: Clear. Cardiovascular: Normal size heart. No pulmonary vascular congestion. Pleura: No pleural fluid. No pneumothorax. Other findings: None. ABDOMEN AND PELVIS: Bowel: There is a dilated loop of small bowel in the central abdomen, of uncertain significance. There is no generalized pattern of small bowel dilatation. There are no air- fluid levels demonstrated on the upright film. There is mild retained feces. Free air: None. Bones: Unremarkable. Other findings: None. IMPRESSION: Nonspecific dilated loop of small bowel in the central abdomen. Mild retained feces. Otherwise unremarkable. - CT Scan/US testicular Other Rad Studies (CT/US): Read By Radiologist, Radiology Report Reviewed CT/US Interpretation: FINDINGS: RIGHT TESTICLE: Measures 3.7 x 1.8 x 2.5 cm. Homogeneous echotexture. Normal flow. No mass. RIGHT EPIDIDYMIS: Normal size and vascularity. Three simple epididymal cysts are noted, largest 9 mm. LEFT TESTICLE: Measures 3.5 x 1.7 x 2.5 cm. Homogeneous echotexture. No mass. Normal flow. LEFT EPIDIDYMIS: Normal size, morphology and vascularity. 2 very small epididymal cysts, 3 mm and 2 mm respectively. . HYDROCELE: Bilateral complex hydrocele, small right and minimal left, with layering debris, nonspecific. VARICOCELE: None. OTHER FINDINGS: None. IMPRESSION: Bilateral complex hydrocele. No evidence of epididymo-orchitis. No testicular mass. Bilateral small epididymal cysts. Progress Note: 981920 dye beck reel operator used/called for pt. Pt was seen and evaluated by Dr Solis who discussed case with Dr Chavis and dx pt with constipation. Instructs Miralax outpt and to followup in the office. Pt was given glycerin suppository. Pt had BM in the ER and notes he feels much better. Adomen soft. Tolerating PO. Afebrile. Discussed with pt and mother (assisted in translation ) of diagnosis and signs of concern. PT notes he is asymptomatic. Also discussed elevated blood pressure and risks of untreated htn. Instructed repeat bp in 1-2 days. Case discussed with Dr Yusuf, agreed upon plan and dsicharge. Disposition - Disposition Disposition: HOME/ ROUTINE Disposition Time: 17:46 Condition: STABLE Additional Instructions: Increase fluids and fiber in your diet. Follow up with Dr Chavis in 1-2 days. Return to ER if symptoms persist or worsen. Prescriptions: Polyethylene Glycol 3350 [Miralax] 17 gm PO DAILY #85 gm Instructions: Constipation, Adult (DC) Forms: [employer] ([place]) - Clinical Impression Clinical Impression: Constipation, S/P appendectomy
--- NOTE | 2018-06-05 15:12 | RAD ---
Date of service: 06/05/2018 PROCEDURE: Radiographs of the chest and abdomen (obstructive series) HISTORY: pain COMPARISON: No prior. TECHNIQUE: AP radiograph of the chest, with upright and supine radiographs of the abdomen. FINDINGS: CHEST: Lungs: Clear. Cardiovascular: Normal size heart. No pulmonary vascular congestion. Pleura: No pleural fluid. No pneumothorax. Other findings: None. ABDOMEN AND PELVIS: Bowel: There is a dilated loop of small bowel in the central abdomen, of uncertain significance. There is no generalized pattern of small bowel dilatation. There are no air-fluid levels demonstrated on the upright film. There is mild retained feces. Free air: None. Bones: Unremarkable. Other findings: None. IMPRESSION: Nonspecific dilated loop of small bowel in the central abdomen. Mild retained feces. Otherwise unremarkable.
[2018-06-05 15:13] LABS: ALB/GLOB RATIO 1.4 (1.0-2.1); ALBUMIN 4.5 g/dL (3.5-5.0); ALT/SGPT 27 U/L (21-72); AST/SGOT 20 U/L (17-59); BLOOD UREA NITROGEN 12 mg/dL (9-20); CALCIUM 9.5 mg/dl (8.6-10.4); GFR AFRICAN-AMERICAN > 60; GFR NON-AFRICAN AMERICAN > 60
[2018-06-05] MEDS ORDERED: POLYETHYLENE GLYCOL 3350 17 GM/Dose PACKET PO ONE (16:56)
--- NOTE | 2018-06-05 17:46 | US ---
Date of service: 06/05/2018 HISTORY: pain TECHNIQUE: Realtime sonography through the scrotum with color and doppler flow. COMPARISON: Not available FINDINGS: RIGHT TESTICLE: Measures 3.7 x 1.8 x 2.5 cm. Homogeneous echotexture. Normal flow. No mass. RIGHT EPIDIDYMIS: Normal size and vascularity. Three simple epididymal cysts are noted, largest 9 mm. LEFT TESTICLE: Measures 3.5 x 1.7 x 2.5 cm. Homogeneous echotexture. No mass. Normal flow. LEFT EPIDIDYMIS: Normal size, morphology and vascularity. 2 very small epididymal cysts, 3 mm and 2 mm respectively. . HYDROCELE: Bilateral complex hydrocele, small right and minimal left, with layering debris, nonspecific. VARICOCELE: None. OTHER FINDINGS: None. IMPRESSION: Bilateral complex hydrocele. No evidence of epididymo-orchitis. No testicular mass. Bilateral small epididymal cysts.
--- NOTE | 2018-06-05 17:48 | CP.PCM.CON ---
History of Present Illness - History of Present Illness History of Present Illness: Surgery: Dr. Chavis CC: Constipation HPI: 53 year old male with history of deafness presents to ED complaining of abdominal pain and constipation. Pt underwent uncomplicated Spigelian hernia repair on 06/02 and was D/C same day. Patient states that he has been unable to have a bowel movement since the procedure was done. Patient states that he has been taking unspecified medication that he was discharged with, on a nightly basis. Patient states that he continues to eat, but his pain just gets worse. He admits to some nausea, but denies vomiting. He states that it would be very painful for him to vomit or to defecate. Patient localizes his pain to the right lower quadrant, the region surrounding the incision site. Patient denies chest pain, palpitations, dypsnea, headache. PMH: deaf PSH: spigelian hernia Meds: MAR reviewed NKDA Social: No ETOH/Tobacco/drugs Fhx: non-contributory Review of Systems - Review of Systems All systems: reviewed and no additional remarkable complaints except (HPI) Past Patient History - Infectious Disease Hx of Infectious Diseases: None - Past Medical History & Family History Past Medical History?: Yes - Past Social History Smoking Status: Never Smoked - CARDIAC Hx Cardiac Disorders: No - PULMONARY Hx Respiratory Disorders: No - NEUROLOGICAL Hx Neurological Disorder: No - HEENT Hx HEENT Problems: Yes (Pt. mute) Hx Deafness: Yes (Pt. can hear?) - RENAL Hx Chronic Kidney Disease: No - ENDOCRINE/METABOLIC Hx Endocrine Disorders: No - HEMATOLOGICAL/ONCOLOGICAL Hx Blood Disorders: No - INTEGUMENTARY Hx Dermatological Problems: No - MUSCULOSKELETAL/RHEUMATOLOGICAL Hx Musculoskeletal Disorders: Yes Other/Comment: Spigelian ([place]) Hernia - GENITOURINARY/GYNECOLOGICAL Hx Genitourinary Disorders: No - PSYCHIATRIC Hx Substance Use: No - SURGICAL HISTORY Hx Surgeries: Yes Hx Herniorrhaphy: Yes (R hernia repair) - ANESTHESIA Hx Anesthesia: No Meds Home Medications: Home Medication List Medication Instructions Recorded Confirmed Type Polyethylene Glycol 3350 [Miralax] 17 gm PO DAILY #85 gm 06/05/18 Rx Allergies/Adverse Reactions: Allergies Allergy/AdvReac Type Severity Reaction Status Date / Time No Known Allergies Allergy Verified 06/05/18 14:33 Physical Exam - Constitutional Appears: Non-toxic, No Acute Distress - Head Exam Head Exam: ATRAUMATIC, NORMOCEPHALIC - Eye Exam Eye Exam: EOMI - ENT Exam ENT Exam: Mucous Membranes Moist - Neck Exam Neck exam: Positive for: Full Rom - Respiratory Exam Respiratory Exam: NORMAL BREATHING PATTERN. absent: Accessory Muscle Use, Respiratory Distress - GI/Abdominal Exam GI & Abdominal Exam: Distended, Soft, Tenderness (RLQ over incision). absent: Firm, Guarding, Hernia, Rigid Additional comments: RLQ incision, C/D/I, no erythema - Extremities Exam Extremities exam: Negative for: calf tenderness, pedal edema - Neurological Exam Neurological exam: Alert, Oriented x3 - Psychiatric Exam Psychiatric exam: Normal Affect, Normal Mood - Skin Skin Exam: Dry, Warm Results - Vital Signs Recent Vital Signs: Last Vital Signs Temp 99.5 F 06/05/18 13:41 Pulse 83 06/05/18 13:41 Resp 20 06/05/18 13:41 BP 155/107 H 06/05/18 13:41 Pulse Ox 97 06/05/18 15:16 - Labs Result Diagrams: 06/05/18 14:54 06/05/18 14:54 Labs: Laboratory Results - last 24 hr 06/05/18 06/05/18 06/05/18 14:30 14:54 14:54 WBC 5.9 RBC 4.99 Hgb 13.6 Hct 41.1 MCV 82.3 MCH 27.2 MCHC 33.1 RDW 13.7 Plt Count 183 MPV 10.4 Neut % (Auto) 64.8 Lymph % (Auto) 21.4 [place] % (Auto) 10.7 H Eos % (Auto) 2.6 Baso % (Auto) 0.5 Neut # (Auto) 3.8 Lymph # (Auto) 1.3 [place] # (Auto) 0.6 Eos # (Auto) 0.2 Baso # (Auto) 0.0 Sodium 140 Potassium 4.3 Chloride 98 Carbon Dioxide 31 H Anion Gap 15 BUN 12 Creatinine 1.0 Est GFR ( Amer) > 60 Est GFR (Non-Af Amer) > 60 Random Glucose 127 H Calcium 9.5 Total Bilirubin 0.5 AST 20 ALT 27 Alkaline Phosphatase 80 Total Protein 7.9 Albumin 4.5 Globulin 3.3 Albumin/Globulin Ratio 1.4 Urine Color Straw Urine Clarity Clear Urine pH 7.0 Ur Specific [place] 1.003 Urine Protein Negative Urine Glucose (UA) Normal Urine Ketones Negative Urine Blood 2+ H Urine Nitrate Negative Urine Bilirubin Negative Urine Urobilinogen Normal Ur Leukocyte Esterase Neg Urine WBC (Auto) < 1 Urine RBC (Auto) 3 - Imaging and Cardiology Abdominal x-ray Status: Image reviewed by me, Report reviewed by me Assessment & Plan - Assessment and Plan (Free Text) Assessment: 53M s/p spigelian hernia repair on 06/02 presents w. constipation -recommend colace 100mg BID and miralax prn -follow up with Dr. Chavis out pt -return to ED if sxs worsen -will d/w attending Irma PGY4
[2018-06-05 18:09] VITALS: BP 158/100; RESP 18
[2018-06-05 18:12] VITALS: PULSE 85; TEMP 98.1
[2018-06-05 18:13] VITALS: O2SAT 97
== END 2018-06-05 18:11 | disposition home or self-care (01) ==
LOC: C.ER 13:25
DX: K59.00 Constipation, unspecified (principal)
CPT/HCPCS: 74022; 76870; 80053; 81001; 85025; 96374; 99285; J1885

== ENCOUNTER 2018-11-18 21:06 | Emergency (ER) | payer MEDICARE, OTHER ==
[2018-11-18 21:06] VITALS: BMI 22.6
--- NOTE | 2018-11-18 22:07 | C.PDOC ---
History Of Present Illness 53 year old male with no PMHx presents to the ER with a complaint of abdominal pain, body aches without neck stiffness, and one episode of vomiting since yesterday after eating chicken. Patient notes he vomited what he had previously ate and also reports having burning chest pain that is radiating out from his abdomen. He did not take anything for the pain, he came in to day because the pain is no improving. Denies diarrhea, constipation, fall, rash, or urinary complaints. Time Seen by Provider: 11/18/18 21:08 Chief Complaint (Nursing): Flu-like Symptoms History Per: Patient History/Exam Limitations: no limitations Onset/Duration Of Symptoms: Days (Yesterday) Current Symptoms Are (Timing): Still Present Location Of Pain: Diffuse Myalgias, Other (Abdominal pain) Sick Contacts (Context): None Associated Symptoms: Myalgias, Vomiting, Other (Abdominal pain) Recent travel outside of the [place]: No Past Medical History Reviewed: Historical Data, Nursing Documentation, Vital Signs Vital Signs: Last Vital Signs Temp 101.8 F H 11/18/18 21:23 Pulse 127 H 11/18/18 21:23 Resp 18 11/18/18 21:23 BP 149/101 H 11/18/18 21:23 Pulse Ox 97 11/18/18 21:23 - Medical History PMH: Denies: Chronic Kidney Disease Family History: States: Unknown Family Hx - Social History Hx Tobacco Use: No Hx Alcohol Use: Yes Hx Substance Use: No - Immunization History Hx Tetanus Toxoid Vaccination: No Hx Influenza Vaccination: No Hx Pneumococcal Vaccination: No Review Of Systems Except As Marked, All Systems Reviewed And Found Negative. Gastrointestinal: Positive for: Vomiting, Abdominal Pain Physical Exam - Physical Exam Appears: Non-toxic Skin: Normal Color, Warm, Dry Head: Atraumatic, Normacephalic Eye(s): bilateral: Normal Inspection Ear(s): Bilateral: Normal Oral Mucosa: Moist Throat: Normal, No Erythema, No Exudate Neck: Normal, Supple, Other (No meningeal sign) Chest: Symmetrical, No Tenderness Cardiovascular: Rhythm Regular (Tachycardic) Respiratory: Normal Breath Sounds, No Rales, No Rhonchi, No Wheezing Gastrointestinal/Abdominal: Soft, No Tenderness Back: No CVA Tenderness Neurological/Psych: Oriented x3 ED Course And Treatment - Laboratory Results Result Diagrams: 11/18/18 22:05 11/18/18 22:05 ECG: Interpreted By Me, Viewed By Me ECG Rhythm: Sinus Rhythm ECG Interpretation: Normal Interpretation Of ECG: No STEMI Rate From EC O2 Sat by Pulse Oximetry: 97 (Room air) Pulse Ox Interpretation: Normal Medical Decision Making Medical Decision Makin yr old male p/w abdominal pain, radiating up throat. GERD like. Mild fever. No urinary complaints. No meningeal signs. Differential includes GERD vs flu 1218 flu negative, will rx given high clinical suspcicion pt in NAD, vitals improved. Afebrile, non tachy w/ fluids and tylenol. XR unremarkable CT w/ epiploic appendigitis- will rx with nsaids at home and have pt f/u oupt pt agreeable to plan. Disposition - Disposition Referrals: [facility] [Outside] [facility] [Outside] [facility] [Outside] Yang Steele MD [Staff Provider] - Disposition: HOME/ ROUTINE Disposition Time: 00:14 Condition: GOOD Additional Instructions: LIA COTTO, thank you for letting us take care of you today. Your provider was Kal Ag and you were treated for ABD PAIN. The emergency medical care you received today was directed at your acute symptoms. If you were prescribed any medication, please fill it and take as directed. It may take several days for your symptoms to resolve. Return to the Emergency Department if your symptoms worsen, do not improve, or if you have any other problems. Please contact your doctor or call one of the physicians/clinics you have been referred to that are listed on the Patient Visit Information form that is included in your discharge packet. Bring any paperwork you were given at discharge with you along with any medications you are taking to your follow up visit. Our treatment cannot replace ongoing medical care by a primary care provider outside of the emergency department. Thank you for allowing the [facility] team to be part of your care today. If you had an X-Ray or CT scan: A Radiologist will review the ED reading if any change in treatment is needed we will contact you. If you had a blood, urine, or wound culture: It will take several days for the results, if any change in treatment is needed we will contact you. If you had an STI test: It will take 48 hours for the results. Please call after 1 week if you have not heard back. Prescriptions: Famotidine [Pepcid] 20 mg PO DAILY PRN 5 Days #5 tab PRN Reason: Pain, Moderate (4-7) Ibuprofen [Motrin Tab] 200 mg PO Q6H PRN 6 Days #24 tab PRN Reason: Pain, Moderate (4-7) Oseltamivir Cap [Tamiflu] 75 mg PO BID 5 Days #10 cap Instructions: Flu, Gastritis (DC), Colitis (DC) Forms: [employer] (Eritrean) - Clinical Impression Clinical Impression: Gastritis, Epiploic appendagitis - Scribe Statement The provider has reviewed the documentation as recorded by the Scribe Sukhwinder Berry All medical record entries made by the Scribe were at my direction and personally dictated by me. I have reviewed the chart and agree that the record accurately reflects my personal performance of the history, physical exam, medical decision making, and the department course for this patient. I have also personally directed, reviewed, and agree with the discharge instructions and disposition.
[2018-11-18 22:08] LABS: BASO % 0.4 % (0.0-2.0); EOS % 0.3 % (0.0-4.0); HEMOGLOBIN 13.1 g/dL (12.0-18.0); LYMPH # 0.4 K/uL (1.0-4.3); LYMPH % 5.9 % (20.0-40.0); MEAN CELL VOLUME 82.1 fL (80.0-94.0); MEAN CORPUSCULAR HEMOGLOBIN 26.7 pg (27.0-31.0); MEAN CORPUSCULAR HGB CONC 32.6 g/dL (33.0-37.0); MEAN PLATELET VOLUME 10.3 fL (7.2-11.7); MONO # 0.7 K/uL (0.0-0.8); MONO % 10.1 % (0.0-10.0); NEUT # 5.4 K/uL (1.8-7.0); NEUT % 83.3 % (50.0-75.0); PLATELET COUNT 189 K/uL (130-400); RBC 4.89 Mil/uL (4.40-5.90); RED CELL DISTRIBUTION WIDTH 14.2 % (11.5-14.5); WHITE BLOOD COUNT 6.5 K/uL (4.8-10.8)
[2018-11-18] MEDS ORDERED: Sodium Chloride 0.9% 1,000 ML IV ONE (22:08)
[2018-11-18 22:20] LABS: ALB/GLOB RATIO 1.6 (1.0-2.1); ALBUMIN 4.9 g/dL (3.5-5.0); ALT/SGPT 22 U/L (21-72); AST/SGOT 29 U/L (17-59); BLOOD UREA NITROGEN 13 mg/dL (9-20); GFR NON-AFRICAN AMERICAN > 60; LIPASE 113 U/L (23-300)
[2018-11-18 22:32] LABS: VENOUS BLOOD GAS BASE EXCESS 5.8 mmol/L (0.0-2.0); VENOUS BLOOD GAS PCO2 55 mmHg (40-60); VENOUS BLOOD GAS PO2 23 mm/Hg (30-55); VENOUS BLOOD PH 7.38 (7.32-7.43)
[2018-11-18 22:33] LABS: BANDS 3 % (0-2); LYMPHOCYTE 3 % (20-40); MONOCYTE 8 % (0-10); NEUTROPHIL 86 % (50-75); PLATELET ESTIMATE NORMAL (NORMAL); TOTAL CELLS COUNTED 100
[2018-11-18 22:34] LABS: ANISOCYTOSIS SLIGHT; HYPOCHROMIC SLIGHT; LARGE PLATELETS PRESENT; POLYCHROMIC SLIGHT
[2018-11-18] MEDS ORDERED: Iodixanol 320 MG/ML 100 ML BOTTLE IV ONE (23:09)
[2018-11-19 01:03] VITALS: BP 128/89; PULSE 89; RESP 17; TEMP 98.6
[2018-11-19 01:27] VITALS: O2SAT 97
--- NOTE | 2018-11-19 08:27 | RAD ---
Chest x-ray single frontal view HISTORY: Burning sensation. COMPARISON: 02/06/2018 FINDINGS: Mild venous congestion. Right hilar prominence. Heart size within normal limits. Impression: Mild venous congestion. Right hilar prominence.
--- NOTE | 2018-11-19 10:30 | CT ---
CT abdomen and pelvis HISTORY: Abdominal pain. COMPARISON: 05/12/2018 Technique: Multiple contiguous axial images were through the abdomen and pelvis with the use of intravenous contrast. Subsequently, sagittal and coronal reformatted images were obtained. This CT exam was performed using one or more of the following dose reduction techniques: Automated exposure control, adjustment of the mA and/or kV according to patient size, and/or use of iterative reconstruction technique. Findings: Lung bases are clear. No pleural or pericardial effusion. Liver is preserved. Contracted gallbladder. Splenule. Spleen is otherwise preserved. Adrenal glands are preserved. Pancreas is preserved. Small hiatal hernia. Right kidney: No calculi or hydronephrosis. Left Kidney: No calculi or hydronephrosis. Mildly thickened urinary bladder wall. Heterogeneous and prominent prostate. Small right scrotal hydrocele. Underdistended sigmoid colon. Moderate fecal retention in the right hemicolon. Prominent focal soft tissue thickening and or fat stranding seen within the anterior pericecal region best seen on series 3, image 113 measuring 3.1 x 2.2 centimeters with some central fat attenuation signal. There may have been a procedure in this region since the prior study dated 05/12/2018. This procedure may have been related to the repair of a fat containing spigelian hernia that was previously present and is no longer seen in this region. These findings may be secondary to a subacute pericecal fat necrosis from hernia repair versus epiploic appendagitis versus focal diverticulitis versus additional etiology. Clinical correlation. Appendix is visualized and appears grossly preserved. Few shotty para-aortic and inguinal lymph nodes. Few shotty mesenteric lymph nodes. Degenerative changes in the spine. Bridging sclerosis of the bilateral SI joints. Posterior disc osteophyte complex at the L5-S1 level. Impression: Prominent focal soft tissue thickening and or fat stranding seen within the anterior pericecal region best seen on series 3, image 113 measuring 3.1 x 2.2 centimeters with some central fat attenuation signal. There may have been a procedure in this region since the prior study dated 05/12/2018. This procedure may have been related to the repair of a fat containing spigelian hernia that was previously present and is no longer seen in this region. These findings may be secondary to a subacute pericecal fat necrosis from hernia repair versus epiploic appendagitis versus focal diverticulitis versus additional etiology. Clinical correlation. Additional findings as above. A preliminary report was generated at 12:06 a.m. on 11/19/[address] Pipo Hood from [employer].
--- NOTE | 2018-11-22 22:47 | CARD ---
APPROVED REPORT Date of service: 11/19/2018 EKG Measurement Heart [id number] <Conclusion> Normal sinus rhythm Normal ECG
== END 2018-11-19 01:04 | disposition home or self-care (01) ==
LOC: C.ER 21:06
DX: K29.70 Gastritis, unspecified, without bleeding (principal); K63.89 Other specified diseases of intestine
CPT/HCPCS: 71046; 74177; 80053; 82803; 83690; 84484; 85025; 87040; 87804; 93005; 96374; 96375; 99283; J2405; J7030; Q9967

== ENCOUNTER 2018-12-27 00:33 | Inpatient (IN) | payer MEDICARE, OTHER ==
[2018-12-27 00:33] VITALS: BMI 22.6
--- NOTE | 2018-12-27 00:51 | C.PDOC ---
History Of Present Illness Patient presents from home complaining of chest discomfort, abdominal pain, and constipation, last bowel movement 3 days ago. Denies fever or chills. Patient is mute. Time Seen by Provider: 12/27/18 00:50 Chief Complaint (Nursing): Chest Pain History Per: Patient History/Exam Limitations: clinical condition (Mute) Onset/Duration Of Symptoms: Days Current Symptoms Are (Timing): Still Present Severity: Moderate Pain Scale Rating Of: 4 Associated Symptoms: Other (Abdominal pain, Constipation) Modifying Factors: None Exacerbating Factors: None Alleviating Factors: None Recent travel outside of the [place]: No Past Medical History Reviewed: Historical Data, Nursing Documentation, Vital Signs Vital Signs: Last Vital Signs Temp 98.3 F 12/27/18 00:40 Pulse 89 12/27/18 00:40 Resp 18 12/27/18 00:40 BP 173/94 H 12/27/18 00:40 Pulse Ox 98 12/27/18 00:40 - Medical History PMH: HIV Denies: Chronic Kidney Disease Family History: States: No Known Family Hx - Social History Hx Tobacco Use: No Hx Alcohol Use: Yes Hx Substance Use: No - Immunization History Hx Tetanus Toxoid Vaccination: No Hx Influenza Vaccination: No Hx Pneumococcal Vaccination: No Review Of Systems Constitutional: Negative for: Fever, Chills Cardiovascular: Positive for: Chest Pain. Negative for: Palpitations Respiratory: Negative for: Cough, Shortness of Breath Gastrointestinal: Positive for: Abdominal Pain, Constipation. Negative for: Nausea, Vomiting Neurological: Negative for: Weakness, Numbness Physical Exam - Physical Exam Appears: Non-toxic Skin: Warm, Dry Head: Normacephalic Oral Mucosa: Moist Chest: Symmetrical, No Tenderness Cardiovascular: Rhythm Regular Respiratory: No Rales, No Rhonchi, No Wheezing Gastrointestinal/Abdominal: Soft, Tenderness (Mild mid epigastric), No Guarding, No Rebound Back: No CVA Tenderness Neurological/Psych: Oriented x3 ED Course And Treatment - Laboratory Results Result Diagrams: 12/27/18 01:19 12/27/18 01:19 ECG: Interpreted By Me, Viewed By Me ECG Rhythm: Sinus Rhythm (81), Nonspecific Changes O2 Sat by Pulse Oximetry: 98 (Room air) Pulse Ox Interpretation: Normal - Radiology CXR: Interpreted by Me, Viewed By Me CXR Interpretation: No: Infiltrates, Fracture, Pnemothorax Progress Note: EKG, blood work, CXR, and urinalysis ordered. Aspirin administered. Disposition Discussed With Dr.: Escobar Burroughs Comment: accepted the pt onhis service and took over the care at 2:31 AM Doctor Will See Patient In The: Hospital Counseled Patient/Family Regarding: Studies Performed - Disposition Disposition: HOSPITALIZED Disposition Time: 01:32 Condition: FAIR Forms: [facility] (Georgian) - POA Present On Arrival: None - Clinical Impression Clinical Impression: Chest pain, Abdominal discomfort, Constipation - Scribe Statement The provider has reviewed the documentation as recorded by the Scribe Sukhwinder Berry All medical record entries made by the Scribe were at my direction and personally dictated by me. I have reviewed the chart and agree that the record accurately reflects my personal performance of the history, physical exam, medical decision making, and the department course for this patient. I have also personally directed, reviewed, and agree with the discharge instructions and disposition. Decision To Admit - Pt Status Changed To: Hospital Disposition Of: Inpatient - Admit Certification Admit to Inpatient:: After my assessment, the patient will require hospitalization for at least two midnights. This is because of the severity of symptoms shown, intensity of services needed, and/or the medical risk in this patient being treated as an outpatient. - InPatient: Physician Admission Certification: I certify that this patient requires 2 or more midnights of care for the following reason:: After my assessment, the patient will require hospitalization for at least two midnights. This is bec ause of the severity of symptoms shown, intensity of services needed, and/or the medical risk in this patient being treated as an outpatient. - . Bed Request Type: Telemetry Admitting Physician: Escobar Burroughs Patient Diagnosis: Chest pain, Abdominal discomfort, Constipation
[2018-12-27] MEDS ORDERED: Aspirin 325 mg EC Tablets PO STA (00:57)
[2018-12-27 01:25] LABS: BASO # 0.1 K/uL (0.0-0.2); BASO % 0.9 % (0.0-2.0); EOS # 0.2 K/uL (0.0-0.7); EOS % 3.3 % (0.0-4.0); LYMPH # 2.1 K/uL (1.0-4.3); LYMPH % 35.8 % (20.0-40.0); MEAN CELL VOLUME 82.1 fL (80.0-94.0); MEAN CORPUSCULAR HEMOGLOBIN 26.4 pg (27.0-31.0); MEAN CORPUSCULAR HGB CONC 32.2 g/dL (33.0-37.0); MEAN PLATELET VOLUME 10.1 fL (7.2-11.7); MONO # 0.6 K/uL (0.0-0.8); RBC 4.93 Mil/uL (4.40-5.90); RED CELL DISTRIBUTION WIDTH 14.8 % (11.5-14.5); WHITE BLOOD COUNT 5.9 K/uL (4.8-10.8)
[2018-12-27 01:32] LABS: SPERM URINE RARE /hpf; URINE BILIRUBIN NEGATIVE (NEGATIVE); URINE BLOOD 2+ (NEGATIVE); URINE CLARITY Clear (Clear); URINE COLOR Straw (YELLOW); URINE GLUCOSE (UA) NORMAL (Normal); URINE LEUKOCYTE ESTERASE NEG Leu/uL (Negative); URINE PROTEIN NEGATIVE (NEGATIVE); URINE UROBILINOGEN NORMAL mg/dL (0.2-1.0)
[2018-12-27 01:36] LABS: INR 1.1; PROTHROMBIN TIME 11.6 SECONDS (9.7-12.2)
[2018-12-27 01:39] LABS: ALB/GLOB RATIO 1.7 (1.0-2.1); ALBUMIN 4.6 g/dL (3.5-5.0); ALT/SGPT 14 U/L (21-72); AST/SGOT 25 U/L (17-59); BLOOD UREA NITROGEN 18 mg/dL (9-20); CALCIUM 9.4 mg/dl (8.6-10.4); GFR NON-AFRICAN AMERICAN > 60
[2018-12-27] MEDS ORDERED: Magnesium Citrate Oral SOL (300 ml) PO ONE (02:31)
[2018-12-27] MEDS ORDERED: Magnesium Citrate Oral SOL (300 ml) ONE (03:22)
[2018-12-27] MEDS ORDERED: Magnesium Hydroxide Susp 30 ml UD PO ONE (08:15)
--- NOTE | 2018-12-27 09:04 | RAD ---
Date of service: 12/27/2018 PROCEDURE: CHEST RADIOGRAPH, 1 VIEW HISTORY: Chest pain COMPARISON: 11/18/2018. FINDINGS: LUNGS: The lungs are well inflated and clear. PLEURA: No pneumothorax or pleural effusion. CARDIOVASCULAR: The heart is normal in size. No aortic atherosclerotic calcifications present. OSSEOUS STRUCTURES: Within normal limits for the patient's age. VISUALIZED UPPER ABDOMEN: Normal. OTHER FINDINGS: None. IMPRESSION: No active pulmonary disease.
[2018-12-27] MEDS ORDERED: Enoxaparin 30 mg Syringe SC SCH (10:00)
[2018-12-27] MEDS: Enoxaparin 40 mg Syringe SC SCH (10:41)
[2018-12-27 12:25] LABS: CK-MB 0.94 ng/mL (0.0-3.38)
[2018-12-27 17:41] LABS: CK-MB 0.78 ng/mL (0.0-3.38)
--- NOTE | 2018-12-27 21:32 | CP.PCM.HP ---
Present on Admission - Present on Admission Any Indicators Present on Admission: No Past Patient History - Infectious Disease Hx of Infectious Diseases: None - Past Medical History & Family History Past Medical History?: Yes - Past Social History Smoking Status: Never Smoked - CARDIAC Hx Cardiac Disorders: No - PULMONARY Hx Respiratory Disorders: No - NEUROLOGICAL Hx Neurological Disorder: No - HEENT Hx HEENT Problems: Yes (Pt. mute) Hx Deafness: Yes (Pt. can hear?) - RENAL Hx Chronic Kidney Disease: No - ENDOCRINE/METABOLIC Hx Endocrine Disorders: No - HEMATOLOGICAL/ONCOLOGICAL Hx Human Immunodeficiency Virus (HIV): Yes - INTEGUMENTARY Hx Dermatological Problems: No - MUSCULOSKELETAL/RHEUMATOLOGICAL Hx Falls: No - GENITOURINARY/GYNECOLOGICAL Hx Genitourinary Disorders: No - PSYCHIATRIC Hx Substance Use: No - SURGICAL HISTORY Hx Surgeries: Yes Hx Herniorrhaphy: Yes (R hernia repair) - ANESTHESIA Hx Anesthesia: Yes Hx Anesthesia Reactions: No Meds Allergies/Adverse Reactions: Allergies Allergy/AdvReac Type Severity Reaction Status Date / Time No Known Allergies Allergy Verified 11/18/18 21:28 Results - Vital Signs Recent Vital Signs: Last Vital Signs Temp 98.1 F 12/27/18 15:32 Pulse 81 12/27/18 15:32 Resp 18 12/27/18 15:32 BP 131/82 12/27/18 15:32 Pulse Ox 98 12/27/18 15:32 - Labs Result Diagrams: 12/27/18 01:19 12/27/18 01:19 Labs: Laboratory Results - last 24 hr 12/27/18 12/27/18 12/27/18 01:19 01:19 01:19 WBC 5.9 RBC 4.93 Hgb 13.0 Hct 40.5 MCV 82.1 MCH 26.4 L MCHC 32.2 L RDW 14.8 H Plt Count 174 MPV 10.1 Neut % (Auto) 50.0 Lymph % (Auto) 35.8 Levy % (Auto) 10.0 Eos % (Auto) 3.3 Baso % (Auto) 0.9 Neut # (Auto) 3.0 Lymph # (Auto) 2.1 Levy # (Auto) 0.6 Eos # (Auto) 0.2 Baso # (Auto) 0.1 PT 11.6 INR 1.1 APTT 33 Sodium Potassium Chloride Carbon Dioxide Anion Gap BUN Creatinine Est GFR ( Amer) Est GFR (Non-Af Amer) Random Glucose Calcium Total Bilirubin AST ALT Alkaline Phosphatase Total Creatine Kinase CK-MB (Mass) Troponin I Total Protein Albumin Globulin Albumin/Globulin Ratio Urine Color Straw Urine Clarity Clear Urine pH 7.0 Ur Specific [place] 1.006 Urine Protein Negative Urine Glucose (UA) Normal Urine Ketones Negative Urine Blood 2+ H Urine Nitrate Negative Urine Bilirubin Negative Urine Urobilinogen Normal Ur Leukocyte Esterase Neg Urine WBC (Auto) < 1 Urine RBC (Auto) 5 H Urine Sperm (Auto) Rare H Alcohol, Quantitative 12/27/18 12/27/18 12/27/18 01:19 11:53 17:03 WBC RBC Hgb Hct MCV MCH MCHC RDW Plt Count MPV Neut % (Auto) Lymph % (Auto) Levy % (Auto) Eos % (Auto) Baso % (Auto) Neut # (Auto) Lymph # (Auto) Levy # (Auto) Eos # (Auto) Baso # (Auto) PT INR APTT Sodium 137 Potassium 4.3 Chloride 98 Carbon Dioxide 33 H Anion Gap 10 BUN 18 Creatinine 1.0 Est GFR ( Amer) > 60 Est GFR (Non-Af Amer) > 60 Random Glucose 103 Calcium 9.4 Total Bilirubin 0.1 L AST 25 ALT 14 L D Alkaline Phosphatase 76 Total Creatine Kinase 115 115 CK-MB (Mass) 0.94 0.78 Troponin I < 0.0120 < 0.0120 < 0.0120 Total Protein 7.3 Albumin 4.6 Globulin 2.7 Albumin/Globulin Ratio 1.7 Urine Color Urine Clarity Urine pH Ur Specific [place] Urine Protein Urine Glucose (UA) Urine Ketones Urine Blood Urine Nitrate Urine Bilirubin Urine Urobilinogen Ur Leukocyte Esterase Urine WBC (Auto) Urine RBC (Auto) Urine Sperm (Auto) Alcohol, Quantitative < 10
[2018-12-28 00:42] VITALS: RESP 20
--- NOTE | 2018-12-28 07:23 | HP ---
CHIEF COMPLAINT: Chest pain. 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 He denies any cough, sore throat. He denies any fever, chills, rigor. He denies any runny nose, sneezing, itchy eyes. He denies any history of dyspnea on exertion. He denies any history of orthopnea or PND. He denies any neck pain. He denies any dizziness, syncope. He denies any history of fever, chills, rigors, and he denies any drug abuse. He denies any history of polyuria, polydipsia, polyphagia. He denies any history of hematuria, pyuria. He denies any itchy nose. ALLERGIES: UNKNOWN ALLERGIES. CURRENT MEDICATIONS: He is on Tamiflu, Motrin, Pepcid. SOCIAL HISTORY: He is a nonsmoker, non-EtOH user. PHYSICAL EXAMINATION: GENERAL: A middle-aged male in no acute distress. VITAL SIGNS: Blood pressure 131/82, pulse 81, respiratory rate 18, temperature 98.1. SKIN: Dry. Poor turgor. HEENT: Atraumatic, normocephalic. Negative pallor. Negative jaundice. Extraocular movements are intact. NECK: Supple. No JVD. No lymph node. No thyromegaly. No carotid bruit. CHEST WALL: Bilateral symmetrical expansion. LUNGS: Clear. No rales. No rhonchi. CARDIOVASCULAR SYSTEM: PMI in fifth intercostal space. S1 and S2. Regular. No heave. No thrill. ABDOMEN: Soft and nontender. Bowel sounds are positive. EXTREMITIES: No clubbing, cyanosis, or edema. RECTAL: Negative. CENTRAL NERVOUS SYSTEM: Awake, alert, and oriented. The patient is aphasic. ASSESSMENT: 1. Chest pain, nonspecific. 2. Abdominal pain. Most likely, he has constipation. 3. Elevated blood pressure. PLAN: Admit. Detailed orders are written. Seen and examined. Escobar Burroughs MD [facility] # [id number]
[2018-12-28] MEDS: Enoxaparin 40 mg Syringe SC SCH (09:19)
--- NOTE | 2018-12-28 11:48 | CP.PCM.CON ---
History of Present Illness - History of Present Illness History of Present Illness: The pt is a 53 yo deaf male who came to the hospital with a c/o chest and abdominal pain. pt only uses sign language, and points to his chest and stomach. No waist presser is immediately available. TNI negative, ecg normal, echo is normal (I reviewed all myself). There is no known CAD. 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 No diabetes. Review of Systems - Review of Systems All systems: reviewed and no additional remarkable complaints except (as above) Past Patient History - Infectious Disease Hx of Infectious Diseases: None - Past Medical History & Family History Past Medical History?: Yes - Past Social History Smoking Status: Never Smoked - CARDIAC Hx Cardiac Disorders: No - PULMONARY Hx Respiratory Disorders: No - NEUROLOGICAL Hx Neurological Disorder: No - HEENT Hx HEENT Problems: Yes (Pt. mute) Hx Deafness: Yes (Pt. can hear?) - RENAL Hx Chronic Kidney Disease: No - ENDOCRINE/METABOLIC Hx Endocrine Disorders: No - HEMATOLOGICAL/ONCOLOGICAL Hx Human Immunodeficiency Virus (HIV): Yes - INTEGUMENTARY Hx Dermatological Problems: No - MUSCULOSKELETAL/RHEUMATOLOGICAL Hx Falls: No - GENITOURINARY/GYNECOLOGICAL Hx Genitourinary Disorders: No - PSYCHIATRIC Hx Substance Use: No - SURGICAL HISTORY Hx Surgeries: Yes Hx Herniorrhaphy: Yes (R hernia repair) - ANESTHESIA Hx Anesthesia: Yes Hx Anesthesia Reactions: No Meds Allergies/Adverse Reactions: Allergies Allergy/AdvReac Type Severity Reaction Status Date / Time No Known Allergies Allergy Verified 11/18/18 21:28 - Medications Medications: Current Medications Acetaminophen (Tylenol 325mg Tab) 650 mg PO Q6 PRN PRN Reason: Headache Aspirin (Ecotrin) 81 mg PO DAILY [facility] Last Admin: 12/28/18 09:18 Dose: 81 mg Enoxaparin Sodium (Lovenox) 40 mg SC DAILY [facility] Last Admin: 12/28/18 09:19 Dose: 40 mg Famotidine (Pepcid) 20 mg PO DAILY [facility] Last Admin: 12/28/18 09:18 Dose: 20 mg Rosuvastatin Calcium (Crestor) 10 mg PO HS [facility] Last Admin: 12/27/18 21:33 Dose: 10 mg Physical Exam - Constitutional Appears: Well - Head Exam Head Exam: ATRAUMATIC - Eye Exam Eye Exam: EOMI - ENT Exam ENT Exam: Mucous Membranes Moist - Neck Exam Neck exam: Positive for: Normal Inspection - Respiratory Exam Respiratory Exam: Clear to Auscultation Bilateral, NORMAL BREATHING PATTERN - Cardiovascular Exam Cardiovascular Exam: REGULAR RHYTHM - GI/Abdominal Exam GI & Abdominal Exam: Normal Bowel Sounds - Extremities Exam Extremities exam: Positive for: normal inspection - Back Exam Back exam: NORMAL INSPECTION - Neurological Exam Neurological exam: Alert, Oriented x3, Reflexes Normal - Psychiatric Exam Psychiatric exam: Normal Affect, Normal Mood - Skin Skin Exam: Normal Color Results - Vital Signs Recent Vital Signs: Last Vital Signs Temp 97.8 F 12/28/18 07:30 Pulse 84 12/28/18 07:30 Resp 20 12/28/18 07:30 BP 125/79 12/28/18 07:30 Pulse Ox 98 12/28/18 07:30 - Labs Result Diagrams: 12/27/18 01:19 12/27/18 01:19 Labs: Laboratory Results - last 24 hr 12/27/18 12/27/18 11:53 17:03 Total Creatine Kinase 115 115 CK-MB (Mass) 0.94 0.78 Troponin I < 0.0120 < 0.0120 - EKG Data EKG Interpreted by: Myself EKG shows normal: Sinus rhythm Rate: Normal Assessment & Plan - Assessment and Plan (Free Text) Assessment: 1. 53 yo man with low CV risk profile, and chest/abdominal pain, constipated, and normal ECg , echo and neg TNI. I cannot evaluate the patients quality of chest pain. for this reason a stress test is advised. Unfortunately I cannot perform it and I asked the nurse to ask Hospital building rental superintendent to perform.
[2018-12-28 16:01] VITALS: BP 119/85; PULSE 20; TEMP 97.7; O2SAT 96
--- NOTE | 2018-12-28 16:14 | CP.PCM.PN ---
Subjective - Date & Time of Evaluation Date of Evaluation: 12/28/18 Time of Evaluation: 11:00 - Subjective Subjective: Patient seen today , ( pt mute sign language used ) abdominal pain improved, belen any chest pain, sob, + bm vss and labs reviewed - stable Objective - Vital Signs/Intake and Output Vital Signs (last 24 hours): Temp Pulse Resp BP Pulse Ox 97.7 F 20 L 20 119/85 96 12/28/18 15:00 12/28/18 15:00 12/28/18 15:00 12/28/18 15:00 12/28/18 15:00 - Medications Medications: Current Medications Acetaminophen (Tylenol 325mg Tab) 650 mg PO Q6 PRN PRN Reason: Headache Aspirin (Ecotrin) 81 mg PO DAILY [facility] Last Admin: 12/28/18 09:18 Dose: 81 mg Enoxaparin Sodium (Lovenox) 40 mg SC DAILY [facility] Last Admin: 12/28/18 09:19 Dose: 40 mg Famotidine (Pepcid) 20 mg PO DAILY [facility] Last Admin: 12/28/18 09:18 Dose: 20 mg Rosuvastatin Calcium (Crestor) 10 mg PO HS [facility] Last Admin: 12/27/18 21:33 Dose: 10 mg - Labs Labs: 12/27/18 01:19 12/27/18 01:19 PT 11.6 SECONDS (9.7-12.2) 12/27/18 01:19 INR 1.1 12/27/18 01:19 APTT 33 SECONDS (21-34) 12/27/18 01:19 Assessment and Plan - Assessment and Plan (Free Text) Assessment: A/P 53 yr old male admitted with abdominal pain and chest pain abdominal pain improved after BM ( given laxative for constipation) troponin x 3 - negative Dr. Bobo consulted for chest pressure s/p stress test - negative and Dr. Jeffries cleared fro discharge from cardiolgy standpoint D/w Dr. antunez, cleared for discharge home today and f/u with PMD in 1 week discharge plan discussed with patient via sign language , who understands and agrees with plan
--- NOTE | 2018-12-28 19:01 | CARD ---
APPROVED REPORT Date of service: 12/27/2018 EXAM: Two-dimensional and M-mode echocardiogram with Doppler and color Doppler. INDICATION Atrial Fibrillation Chest Pain Surgery/Intervention CABG: RISK FACTORS Hypertension 2D DIMENSIONS IVSd1.0 (0.7-1.1cm)Aortic Root (2D)3.4 (2.0-3.7cm) LVDd4.1 (3.9-5.9cm)PWd1.0 (0.7-1.1cm) LA [id number] (18-58mL)LVDs2.8 (2.5-4.0cm) FS (%) 33.0 %LVEF (%)62.0 (>50%) LVEF (Torres's)57.16 %IVC0.00 cm M-Mode DIMENSIONS RVDd2.70 (2.1-3.2cm)Left Atrium (MM)2.37 (2.5-4.0cm) IVSd0.91 (0.7-1.1cm)Aortic Root3.98 (2.2-3.7cm) LVDd4.95 (4.0-5.6cm)Aortic Cusp Exc.2.35 (1.5-2.0cm) PWd0.94 (0.7-1.1cm)FS (%) 37 % LVDs3.13 (2.0-3.8cm)TAPSE15.86 cm LVEF (%)66 (>50%) Mitral Valve MV E Vspjmnee92.4cm/sMV A Rfuakmca30.9cm/sE/A ratio1.3 TDI Lateral E' Peak V13.64cm/sMedial E' Peak V6.80cm/sE/Lateral E'5.2 E/Medial E'10.5 Tricuspid Valve TR Peak [id number]/sTR Peak [id number] LEFT VENTRICLE The left ventricle is normal size. There is mild concentric left ventricular hypertrophy. Left ventricle systolic function is normal. The Ejection Fraction is 60-65%. There is normal LV segmental wall motion. The left ventricular diastolic function is normal. RIGHT VENTRICLE The right ventricle is normal size. There is normal right ventricular wall thickness. The right ventricular systolic function is normal. ATRIA The left atrium size is normal. The right atrium size is normal. The interatrial septum is intact with no evidence for an atrial septal defect. AORTIC VALVE The aortic valve is normal in structure. No aortic regurgitation is present. There is no aortic valvular stenosis. There is no aortic valvular vegetation. MITRAL VALVE The mitral valve is normal in structure. There is no evidence of mitral valve prolapse. There is no mitral valve stenosis. There is no mitral valve regurgitation noted. TRICUSPID VALVE The tricuspid valve is normal in structure. There is mild tricuspid regurgitation. Right ventricular systolic pressure is estimated at less than 30 mmHg. There is no pulmonary hypertension. PULMONIC VALVE The pulmonic valve is not well visualized. There is mild pulmonic valvular regurgitation. GREAT VESSELS The aortic root is normal in size. PERICARDIAL EFFUSION There is no significant pericardial effusion. <Conclusion> Left ventricle systolic function is normal. The Ejection Fraction is 60-65%. Hypertensive heart disease. No aortic regurgitation is present. There is no mitral valve regurgitation noted. There is mild tricuspid regurgitation. There is no pulmonary hypertension. There is mild pulmonic valvular regurgitation.
--- NOTE | 2018-12-28 19:57 | CARD ---
APPROVED REPORT Date of service: 12/27/2018 EKG Measurement Heart [id number] <Conclusion> Normal sinus rhythm Normal ECG
--- NOTE | 2018-12-29 08:25 | CP.PCM.DIS ---
Provider - Provider Date of Admission: 12/27/18 02:30 Attending physician: Escobar Burroughs MD Consults: 12/27/18 12:30 Cardiology Consult Routine Comment: Consulting Provider: Srikanth Bobo Consulting Physician: Srikanth Bobo Reason for Consult: chest pain Time Spent in preparation of Discharge (in minutes): 30 Hospital Course - Lab Results Lab Results: Most Recent Lab Values WBC 5.9 K/uL (4.8-10.8) 12/27/18 01: RBC 4.93 Mil/uL (4.40-5.90) 12/27/18 01:19 Hgb 13.0 g/dL (12.0-18.0) 12/27/18: Hct 40.5 % (35.0-51.0) 12/27/18: MCV 82.1 fL (80.0-94.0) 12/27/18 01: MCH 26.4 pg (27.0-31.0) L 12/27/18: MCHC 32.2 g/dL (33.0-37.0) L 12/27/18: RDW 14.8 % (11.5-14.5) H 12/27/18: Plt Count 174 K/uL (130-400) 12/27/18: MPV 10.1 fL (7.2-11.7) 12/27/18: Neut % (Auto) 50.0 % (50.0-75.0) 12/27/18: Lymph % (Auto) 35.8 % (20.0-40.0) 12/27/18: [place] % (Auto) 10.0 % (0.0-10.0) 12/27/18: Eos % (Auto) 3.3 % (0.0-4.0) 12/27/18: Baso % (Auto) 0.9 % (0.0-2.0) 12/27/18:19 Neut # (Auto) 3.0 K/uL (1.8-7.0) 12/27/18: Lymph # (Auto) 2.1 K/uL (1.0-4.3) 12/27/18 01:19 [place] # (Auto) 0.6 K/uL (0.0-0.8) 12/27/18 01:19 Eos # (Auto) 0.2 K/uL (0.0-0.7) 12/27/18 01:19 Baso # (Auto) 0.1 K/uL (0.0-0.2) 12/27/18 01:19 PT 11.6 SECONDS (9.7-12.2) 12/27/18: INR 1.1 12/27/18 01:19 APTT 33 SECONDS (21-34) 12/27/18 01:19 Sodium 137 mmol/L (132-148) 12/27/18 01:19 Potassium 4.3 mmol/L (3.6-5.2) 12/27/18 01: Chloride 98 mmol/L (98-107) 12/27/18 01: Carbon Dioxide 33 mmol/L (22-30) H 12/27/18:19 Anion Gap 10 (10-20) 12/27/18 01:19 BUN 18 mg/dL (9-20) 12/27/18 01:19 Creatinine 1.0 mg/dL (0.8-1.5) 12/27/18 01:19 Est GFR ( Amer) > 60 12/27/18 01:19 Est GFR (Non-Af Amer) > 60 12/27/18 01:19 Random Glucose 103 mg/dL (75-110) 12/27/18 01:19 Calcium 9.4 mg/dl (8.6-10.4) 12/27/18 01:19 Total Bilirubin 0.1 mg/dL (0.2-1.3) L 12/27/18 01:19 AST 25 U/L (17-59) 12/27/18 01:19 ALT 14 U/L (21-72) L D 12/27/18 01:19 Alkaline Phosphatase 76 U/L (38-126) 12/27/18 01:19 Total Creatine Kinase 115 U/L (55-170) 12/27/18 17:03 CK-MB (Mass) 0.78 ng/mL (0.0-3.38) 12/27/18 17:03 Troponin I < 0.0120 ng/mL (0.00-0.120) 12/27/18 17:03 Total Protein 7.3 g/dL (6.3-8.3) 12/27/18 01:19 Albumin 4.6 g/dL (3.5-5.0) 12/27/18 01:19 Globulin 2.7 gm/dL (2.2-3.9) 12/27/18 01:19 Albumin/Globulin Ratio 1.7 (1.0-2.1) 12/27/18 01:19 Urine Color Straw (YELLOW) 12/27/18 01:19 Urine Clarity Clear (Clear) 12/27/18 01:19 Urine pH 7.0 (5.0-8.0) 12/27/18 01:19 Ur Specific [place] 1.006 (1.003-1.030) 12/27/18 01:19 Urine Protein Negative mg/dL (NEGATIVE) 12/27/18 01:19 Urine Glucose (UA) Normal mg/dL (Normal) 12/27/18 01:19 Urine Ketones Negative mg/dL (NEGATIVE) 12/27/18 01:19 Urine Blood 2+ (NEGATIVE) H 12/27/18 01:19 Urine Nitrate Negative (NEGATIVE) 12/27/18 01:19 Urine Bilirubin Negative (NEGATIVE) 12/27/18 01:19 Urine Urobilinogen Normal mg/dL (0.2-1.0) 12/27/18 01:19 Ur Leukocyte Esterase Neg Saw/uL (Negative) 12/27/18 01:19 Urine WBC (Auto) < 1 /hpf (0-5) 12/27/18 01:19 Urine RBC (Auto) 5 /hpf (0-3) H 12/27/18 01:19 Urine Sperm (Auto) Rare /hpf (NONE) H 12/27/18 01:19 Alcohol, Quantitative < 10 mg/dl (0-10) 12/27/18 01:19 Discharge Exam - Head Exam Head Exam: ATRAUMATIC Discharge Plan - Follow Up Plan Condition: FAIR Disposition: HOME/ ROUTINE Instructions: Heart Healthy Diet, Acute Abdomen (Belly Pain), Adult (DC), Chest Pain (DC) Additional Instructions: Please follow up with PMD in 1 week continue medication as per med. rec. Referrals: Escobar Burroughs MD [Staff Provider] -
--- NOTE | 2018-12-30 21:31 | DS ---
DISCHARGE DIAGNOSES: Noncoronary chest pain and constipation. 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 He denied any fever, chills, or rigors. He denied any cough, sore throat, or runny nose. He was admitted to the floor. He underwent echocardiogram and chest x-ray, and both echocardiogram and chest x-ray were normal. At present, he is being discharged. CONDITION UPON DISCHARGE: Stable. PLAN: The patient will be followed up as an outpatient. Escobar Burroughs MD
== END 2018-12-28 18:35 | disposition home or self-care (01) | DRG 313 ==
LOC: C.ER 00:33 → C.6T 02:30
PROVIDERS: ADMIT Internal Medicine; ATTEND Internal Medicine
DX: R07.89 Other chest pain (principal); B20 Human immunodeficiency virus [HIV] disease; K59.00 Constipation, unspecified; H91.3 Deaf nonspeaking, not elsewhere classified

== ENCOUNTER 2019-01-29 14:42 | Emergency (ER) | payer MEDICARE, OTHER ==
[2019-01-29 14:42] VITALS: BMI 22.6
[2019-01-29 15:32] VITALS: O2SAT 100
[2019-01-29 19:01] VITALS: RESP 16
--- NOTE | 2019-01-29 19:07 | C.PDOC ---
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 Patient states he first noticed changes to his urine 2 weeks ago, reporting uri ne is concentrated, dark yellow and had a foul smell. He then began to experience RLQ abdominal pain, intermittent in nature, not associated with food intake or urination. Patient denies having similar symptoms in past. Patient also reports a 20+ lb weight loss over the past 3 months with no associated decrease in PO intake. Denies trauma, nausea, vomiting, dysuria, hematuria, radiation of pain, flank/back pain, diarrhea, constipation. Reports last BM this morning, normal in color and consistency. <Reina Rojo - Last Filed: 01/29/19 21:56> History Per: Choir Leader (sign language interpretor used) History/Exam Limitations: no limitations Onset/Duration Of Symptoms: Days Current Symptoms Are (Timing): Still Present Severity: Moderate Pain Scale Rating Of: 7 Quality Of Discomfort: Sharp Associated Symptoms: Fever, Urinary Symptoms. denies: Nausea, Vomiting, Diarrhea, Back Pain, Chest Pain, Constipation <Reina Rojo - Last Filed: 01/29/19 21:56> <Suzanna Galaviz - Last Filed: 01/30/19 01:54> Time Seen by Provider: 01/29/19 18:43 Chief Complaint (Nursing): Male Genitourinary Past Medical History Vital Signs: Last Vital Signs Temp 97.7 F 01/29/19 19:00 Pulse 82 01/29/19 19:00 Resp 16 01/29/19 19:00 BP 152/94 H 01/29/19 19:00 Pulse Ox 100 01/29/19 15:24 - Medical History PMH: HIV Denies: Chronic Kidney Disease Family History: States: Unknown Family Hx - Social History Hx Tobacco Use: No Hx Alcohol Use: Yes Hx Substance Use: No - Immunization History Hx Tetanus Toxoid Vaccination: No Hx Influenza Vaccination: No Hx Pneumococcal Vaccination: No <Reina Rojo - Last Filed: 01/29/19 21:56> Vital Signs: Last Vital Signs Temp 98.9 F 01/30/19 00:17 Pulse 77 01/30/19 00:17 Resp 16 01/30/19 00:17 BP 133/89 01/30/19 00:17 Pulse Ox 100 01/30/19 00:17 <Suzanna Galaviz - Last Filed: 01/30/19 01:54> Review Of Systems Constitutional: Positive for: Fever Cardiovascular: Negative for: Chest Pain, Palpitations Respiratory: Negative for: Shortness of Breath Gastrointestinal: Positive for: Abdominal Pain (RLQ). Negative for: Nausea, Vomiting, Diarrhea, Constipation, Hematochezia Genitourinary: Positive for: Other (concentrated foul smelling urine). Negative for: Dysuria Musculoskeletal: Negative for: Back Pain <RojoReina - Last Filed: 01/29/19 21:56> Physical Exam - Physical Exam Appears: Non-toxic, No Acute Distress Skin: Normal Color, Warm, Dry Head: Atraumatic, Normacephalic Eye(s): bilateral: Normal Inspection, EOMI Oral Mucosa: Moist Cardiovascular: Rhythm Regular, No Murmur Respiratory: Normal Breath Sounds Gastrointestinal/Abdominal: Bowel Sounds, Soft, Tenderness (RLQ minimallt TTP), No Mass, No Distention, No Guarding, No Rebound, Other (no sprapubic TTP) Back: No CVA Tenderness Extremity: No Tenderness, No Pedal Edema Neurological/Psych: Oriented x3 <RojoReina - Last Filed: 01/29/19 21:56> ED Course And Treatment - Laboratory Results Result Diagrams: 01/29/19 19:45 01/29/19 19:45 Lab Results: UA: 35 RBC, 1+blood Lab Interpretation: Abnormal O2 Sat by Pulse Oximetry: 100 <RojoReina - Last Filed: 01/29/19 21:56> - Laboratory Results Result Diagrams: 01/29/19 19:45 01/29/19 19:45 Lab Results: Total Bilirubin 0.2 mg/dL (0.2-1.3) 01/29/19 19:45 AST 24 U/L (17-59) 01/29/19 19:45 ALT 10 U/L (21-72) L D 01/29/19 19:45 Alkaline Phosphatase 66 U/L (38-126) 01/29/19 19:45 Total Protein 7.0 g/dL (6.3-8.3) 01/29/19 19:45 Albumin 4.2 g/dL (3.5-5.0) 01/29/19 19:45 Globulin 2.8 gm/dL (2.2-3.9) 01/29/19 19:45 Albumin/Globulin Ratio 1.5 (1.0-2.1) 01/29/19 19:45 Urine Color Yellow (YELLOW) 01/29/19 19:45 Urine Clarity Hazy (Clear) 01/29/19 19:45 Urine pH 6.0 (5.0-8.0) 01/29/19 19:45 Ur Specific [place] 1.026 (1.003-1.030) 01/29/19 19:45 Urine Protein 1+ mg/dL (NEGATIVE) H 01/29/19 19:45 Urine Glucose (UA) Normal mg/dL (Normal) 01/29/19 19:45 Urine Ketones Negative mg/dL (NEGATIVE) 01/29/19 19:45 Urine Blood 1+ (NEGATIVE) H 01/29/19 19:45 Urine Nitrate Negative (NEGATIVE) 01/29/19 19:45 Urine Bilirubin Negative (NEGATIVE) 01/29/19 19:45 Urine Urobilinogen Normal mg/dL (0.2-1.0) 01/29/19 19:45 Ur Leukocyte Esterase Neg Saw/uL (Negative) 01/29/19 19:45 Urine WBC (Auto) < 1 /hpf (0-5) 01/29/19 19:45 Urine RBC (Auto) 35 /hpf (0-3) H 01/29/19 19:45 Urine Bacteria Occ (<OCC) H 01/29/19 19:45 - CT Scan/US CT abd/pel Other Rad Studies (CT/US): Read By Radiologist, Radiology Report Reviewed CT/US Interpretation: EXAM: CT Abdomen and Pelvis with and without IV contrast. CLINICAL HISTORY: RLQ abd and R flank pain, hematuria. TECHNIQUE: Axial computed tomography images of the abdomen and pelvis with and without intravenous contrast. CONTRAST: With and without intravenous contrast. COMPARISON: Comparison is made to prior CT abdomen and pelvis dated 11/18/2018. Additionally, the report was reviewed. FINDINGS: LUNG BASES: The lung bases appear clear. No pleural effusions are seen. LIVER: There is mild hepatomegaly. The liver measured 16.6 cm in the mid clavicular line. GALLBLADDER AND BILE DUCTS: The gallbladder appears within normal limits. No radioopaque gallstones are seen. No biliary ductal dilatation is evident. PANCREAS: Unremarkable. SPLEEN: Unremarkable. ADRENAL GLANDS: Unremarkable. KIDNEYS, URETERS, AND BLADDER: There was symmetrical excretion of contrast agent by the kidneys which appeared normal in size and position. There is no hydronephrosis or hydroureter. No urinary calculi are seen. The calyceal configuration is within normal limits bilaterally. The course and caliber of the visualized ureters appeared normal. The urinary bladder appeared normal in size and configuration. STOMACH AND BOWEL: Unremarkable appearance of the stomach. No evidence of bowel obstruction. Mild mucosal wall thickening and fluid in the lumen of the predominantly right sided small intestine could be compatible with mild ileitis. Infectious or inflammatory etiologies are thought most likely.No evidence suggesting colitis. APPENDIX: No evidence of acute appendicitis on CT examination. PERITONEUM: No free fluid. No free air. In the anterior right lower quadrant abutting the peritoneal lining there is demonstration of a 2.4 x 1.8 cm ill-defined opacity. There is central decreased attenuation noted. It's margins appear somewhat hazy which could be compatible with epiploic appendagitis. LYMPH NODES: No lymphadenopathy is evident. REPRODUCTIVE: Unremarkable as visualized. VASCULATURE: No evidence of abdominal aortic aneurysm. BONES: No aggressive appearing osseous lesion. No acute osseous pathology evident. There is evidence of mild degenerative disc disease at L5-S1. IMPRESSION: 1. Findings described above in the anterior right lower quadrant thought compatible with epiploic appendagitis. 2. Evidence of mild ileitis. 3. Mild hepatomegaly. <Suzanna Galaviz - Last Filed: 01/30/19 01:54> Medical Decision Making Medical Decision Makin53 year old male presenting with complaints of foul smelling concentrated urine and RLQ abdominal pain for 2 weeks CBC CMP UA Urine C&S CT A/P <Reina Rojo - Last Filed: 01/29/19 21:56> Medical Decision Making: Imaging results discussed with patient. On re-eval he states that he feels much better and would like to go home. Advised NSAIDs for pain as needed. Follow up with PMD as outpatient. Return to the ED for any new or worsening symptoms. ASL salt cutter utilized to discuss all results and patient was given the opportunity to ask further questions. <Suzanna Galaviz - Last Filed: 01/30/19 01:54> Disposition - Disposition Disposition Time: 21:55 <Reina Rojo - Last Filed: 01/29/19 21:56> <Suzanna Galaviz - Last Filed: 01/30/19 01:54> - Disposition Disposition: HOME/ ROUTINE Condition: FAIR Additional Instructions: LIA COTTO, thank you for letting us take care of you today. Your provider was Suzanna Galaviz MD and you were treated for KIDNEY PAIN. The emergency medical care you received today was directed at your acute symptoms. If you were prescribed any medication, please fill it and take as directed. It may take several days for your symptoms to resolve. Return to the Emergency Department if your symptoms worsen, do not improve, or if you have any other problems. Please contact your doctor or call one of the physicians/clinics you have been referred to that are listed on the Patient Visit Information form that is included in your discharge packet. Bring any paperwork you were given at discharge with you along with any medications you are taking to your follow up visit. Our treatment cannot replace ongoing medical care by a primary care provider outside of the emergency department. Thank you for allowing the [facility] team to be part of your care today. If you had an X-Ray or CT scan: A Radiologist will review the ED reading if any change in treatment is needed we will contact you. If you had a blood, urine, or wound culture: It will take several days for the results, if any change in treatment is needed we will contact you. If you had an STI test: It will take 48 hours for the results. Please call after 1 week if you have not heard back. Instructions: Acute Abdomen (Belly Pain), Adult (DC), Blood in the Urine (Hematuria), Adult (DC) Forms: [employer] ([place]i) - Clinical Impression Clinical Impression: RLQ abdominal pain, Hematuria
[2019-01-29 19:54] LABS: BASO % 0.9 % (0.0-2.0); EOS # 0.2 K/uL (0.0-0.7); HEMOGLOBIN 13.2 g/dL (12.0-18.0); LYMPH # 1.8 K/uL (1.0-4.3); LYMPH % 34.6 % (20.0-40.0); MEAN CELL VOLUME 82.4 fL (80.0-94.0); MEAN CORPUSCULAR HEMOGLOBIN 26.6 pg (27.0-31.0); MEAN CORPUSCULAR HGB CONC 32.3 g/dL (33.0-37.0); MONO # 0.5 K/uL (0.0-0.8); MONO % 9.3 % (0.0-10.0); NEUT # 2.7 K/uL (1.8-7.0); NEUT % 52.2 % (50.0-75.0); RBC 4.96 Mil/uL (4.40-5.90); RED CELL DISTRIBUTION WIDTH 15.3 % (11.5-14.5); WHITE BLOOD COUNT 5.2 K/uL (4.8-10.8)
[2019-01-29 20:07] LABS: ALB/GLOB RATIO 1.5 (1.0-2.1); ALBUMIN 4.2 g/dL (3.5-5.0); ALT/SGPT 10 U/L (21-72); AST/SGOT 24 U/L (17-59); BLOOD UREA NITROGEN 20 mg/dL (9-20); CALCIUM 9.8 mg/dl (8.6-10.4); GFR NON-AFRICAN AMERICAN > 60
[2019-01-29 20:09] LABS: URINE BACTERIA OCC (<OCC); URINE BILIRUBIN NEGATIVE (NEGATIVE); URINE BLOOD 1+ (NEGATIVE); URINE CLARITY Hazy (Clear); URINE COLOR Yellow (YELLOW); URINE GLUCOSE (UA) NORMAL (Normal); URINE LEUKOCYTE ESTERASE NEG Leu/uL (Negative); URINE PROTEIN 1+ mg/dL (NEGATIVE); URINE UROBILINOGEN NORMAL mg/dL (0.2-1.0)
[2019-01-29] MEDS ORDERED: Iodixanol 320 MG/ML 100 ML BOTTLE IV ONE (21:04)
[2019-01-30 00:18] VITALS: BP 133/89; PULSE 77; TEMP 98.9
--- NOTE | 2019-01-30 13:37 | CT ---
Date of service: 01/29/2019 PROCEDURE: CT Abdomen and Pelvis with and without intravenous contrast HISTORY: RLQ abd pain/hematuria COMPARISON: CT abdomen and pelvis with IV contrast performed 11/18/18 TECHNIQUE: Axial images of the abdomen were obtained in the pre contrast, portal venous and delayed phases of enhancement. Coronal and sagittal reformats were generated. Contrast dose: 100 mL Visipaque 320 IV Radiation dose: Total exam DLP = 802.0 mGy-cm. This CT exam was performed using one or more of the following dose reduction techniques: Automated exposure control, adjustment of the mA and/or kV according to patient size, and/or use of iterative reconstruction technique. FINDINGS: LOWER THORAX: Base LIVER: Unremarkable. GALLBLADDER AND BILE DUCTS: Unremarkable. PANCREAS: Unremarkable. SPLEEN: 12 mm probable splenule. Otherwise unremarkable. ADRENALS: Unremarkable. KIDNEYS AND URETERS: The kidneys enhance symmetrically. No hydronephrosis or obstructing calculus identified. VASCULATURE: No aortic aneurysm. No aortic atherosclerotic calcification or mural plaque present. BOWEL: Stomach is nondistended. Lack of oral contrast limits evaluation for bowel pathology. Bowel loops appear within normal limits of caliber without evidence of obstruction. 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 APPENDIX: The appendix appears within normal limits of caliber. No secondary signs of acute appendicitis. PERITONEUM: No significant free fluid. No definite free air. LYMPH NODES: No bulky adenopathy identified. BLADDER: Mildly thick-walled urinary bladder. REPRODUCTIVE: Heterogeneous prostate gland appears enlarged measuring approximately 3.9 x 4.6 cm. BONES: No acute osseous abnormality is detected. OTHER FINDINGS: None. IMPRESSION: Right lower quadrant well-circumscribed right lower quadrant opacity with evidence of internal fatty focus appears consistent with omental infarction. Alternatives including fat necrosis may be considered. Correlate clinically. Mildly thick-walled urinary bladder; recommend correlation with urinalysis. Enlarged prostate gland. Recommend correlation with PSA. Preliminary impression was provided by [employer]. Study marked for PA review.
== END 2019-01-30 00:19 | disposition home or self-care (01) ==
LOC: C.ER 14:42
DX: R10.31 Right lower quadrant pain (principal); R31.9 Hematuria, unspecified
CPT/HCPCS: 74178; 80053; 81001; 85025; 87086; 99285; Q9967

== ENCOUNTER 2019-03-05 22:08 | Emergency (ER) | payer MEDICARE, OTHER ==
[2019-03-05 22:08] VITALS: BMI 22.6
[2019-03-05 22:43] VITALS: O2SAT 97
[2019-03-05] MEDS ORDERED: Sodium Chloride 0.9% 1,000 ML IV ONE (22:44)
--- NOTE | 2019-03-05 22:44 | C.PDOC ---
History Of Present Illness Patient presents with abdominal pain , nausea, some dizziness which started this evening. No f/c, vomiting/. Tolerating po. Has been worked up previously with similar complaints, with essentially negative work up. Has had [address] since October Time Seen by Provider: 03/05/19 22:43 Chief Complaint (Nursing): Abdominal Pain History Per: Patient History/Exam Limitations: no limitations Onset/Duration Of Symptoms: Hrs Current Symptoms Are (Timing): Still Present Context: Other Severity: Moderate Pain Scale Rating Of: 4 Location Of Pain/Discomfort: Diffuse Radiation Of Pain To:: None Quality Of Discomfort: Dull, Cramping Associated Symptoms: denies: Fever, Chills Alleviating Factors: None Last Bowel Movement: Today Recent travel outside of the [place] States: No Additional History Per: Patient Past Medical History Reviewed: Historical Data, Nursing Documentation, Vital Signs Vital Signs: Last Vital Signs Temp 98 F 03/05/19 22:39 Pulse 87 03/05/19 22:39 Resp 14 03/05/19 22:39 BP 167/95 H 03/05/19 22:39 Pulse Ox 97 03/05/19 22:39 Primary Care Provider: FAMILY PROVIDER,NO - Medical History PMH: HIV Denies: Chronic Kidney Disease Family History: States: No Known Family Hx - Social History Hx Tobacco Use: No Hx Alcohol Use: Yes Hx Substance Use: No - Immunization History Hx Tetanus Toxoid Vaccination: No Hx Influenza Vaccination: No Hx Pneumococcal Vaccination: No Review Of Systems Constitutional: Negative for: Fever, Chills Cardiovascular: Negative for: Chest Pain Respiratory: Negative for: Shortness of Breath Gastrointestinal: Positive for: Nausea, Abdominal Pain Genitourinary: Negative for: Dysuria Musculoskeletal: Negative for: Back Pain Skin: Negative for: Rash Neurological: Negative for: Weakness Psych: Negative for: Anxiety Physical Exam - Physical Exam Appears: Non-toxic, No Acute Distress Skin: Warm, Dry Oral Mucosa: Moist Neck: Supple Chest: Symmetrical Cardiovascular: Rhythm Regular Respiratory: No Rales, No Rhonchi, No Wheezing Gastrointestinal/Abdominal: Soft, Tenderness, No Distention, No Guarding, No Rebound Back: No CVA Tenderness Extremity: Normal ROM Extremity: Bilateral: Atraumatic Neurological/Psych: Oriented x3 Gait: Steady ED Course And Treatment - Laboratory Results Result Diagrams: 03/05/19 23:05 03/05/19 23:05 ECG: Interpreted By Me, Viewed By Me ECG Rhythm: Sinus Rhythm (66), Nonspecific Changes O2 Sat by Pulse Oximetry: 97 Pulse Ox Interpretation: Normal - Radiology CXR: Interpreted by Me, Viewed By Me CXR Interpretation: No: Infiltrates, Fracture, Pnemothorax - Other Rad obstr X-Ray: Interpreted by Me, Viewed By Me Interpretation: no obstr, no free air,lots of stool Reevaluation Time: 00:41 Reassessment Condition: Improved Medical Decision Making Medical Decision Making: Upon provider reevaluation patient is feeling better, is medically stable, and requires no further treatment in the ED at this time. Patient will be discharged home with Rx for protoniox, naproxen and miralax . Counseling was provided and all questions were answered regarding diagnosis and need for follow up with the referred clinic. There is agreement to discharge plan. Return if symptoms persist or worsen. Disposition Counseled Patient/Family Regarding: Studies Performed, Diagnosis, Need For Fo llowup, Rx Given - Disposition Referrals: [facility] [Outside] [facility] [Outside] Disposition: HOME/ ROUTINE Disposition Time: 22:44 Condition: FAIR Additional Instructions: Please return if symptoms recur Prescriptions: Naproxen [Naprosyn] 1 tab PO BID PRN #25 tab PRN Reason: Pain Pantoprazole Sodium [Protonix] 40 mg PO DAILY #14 ect Polyethylene Glycol 3350 [Miralax] 17 gm PO DAILY #270 ml Instructions: Constipation, Adult (DC), Acute Abdomen (Belly Pain), Adult (DC) Forms: [employer] (Kiswahili) - Clinical Impression Clinical Impression: Abdominal pain, Constipation
[2019-03-05 23:08] LABS: BASO % 0.9 % (0.0-2.0); EOS # 0.4 K/uL (0.0-0.7); EOS % 7.3 % (0.0-4.0); HEMOGLOBIN 13.7 g/dL (12.0-18.0); LYMPH # 1.5 K/uL (1.0-4.3); MEAN CELL VOLUME 82.8 fL (80.0-94.0); MEAN CORPUSCULAR HEMOGLOBIN 26.9 pg (27.0-31.0); MEAN CORPUSCULAR HGB CONC 32.5 g/dL (33.0-37.0); MONO # 0.6 K/uL (0.0-0.8); MONO % 10.5 % (0.0-10.0); NEUT # 2.9 K/uL (1.8-7.0); NEUT % 53.3 % (50.0-75.0); RBC 5.11 Mil/uL (4.40-5.90); RED CELL DISTRIBUTION WIDTH 15.1 % (11.5-14.5); WHITE BLOOD COUNT 5.5 K/uL (4.8-10.8)
[2019-03-05 23:11] LABS: URINE BACTERIA RARE (<OCC); URINE BILIRUBIN NEGATIVE (NEGATIVE); URINE CLARITY Clear (Clear); URINE COLOR Straw (YELLOW); URINE GLUCOSE (UA) NORMAL (Normal); URINE LEUKOCYTE ESTERASE NEG Leu/uL (Negative); URINE PROTEIN NEGATIVE (NEGATIVE); URINE UROBILINOGEN NORMAL mg/dL (0.2-1.0)
[2019-03-05 23:16] LABS: INR 1.1; PARTIAL THROMBOPLASTIN TIME 31.9 SECONDS (21-34); PROTHROMBIN TIME 11.7 SECONDS (9.7-12.2)
[2019-03-05] MEDS ORDERED: Sodium Chloride 0.9% 1,000 ML ONE (23:18)
[2019-03-05 23:22] LABS: ALB/GLOB RATIO 1.3 (1.0-2.1); ALBUMIN 4.4 g/dL (3.5-5.0); ALT/SGPT 20 U/L (21-72); AST/SGOT 26 U/L (17-59); BLOOD UREA NITROGEN 17 mg/dL (9-20); CALCIUM 9.7 mg/dl (8.6-10.4); GFR NON-AFRICAN AMERICAN > 60; LIPASE 202 U/L (23-300)
[2019-03-05 23:23] LABS: URINE BLOOD 1+ (NEGATIVE)
[2019-03-06 01:09] VITALS: BP 120/89; PULSE 72; RESP 18; TEMP 98.3
--- NOTE | 2019-03-06 12:00 | RAD ---
Date of service: 03/06/2019 PROCEDURE: Radiographs of the chest and abdomen (obstructive series) HISTORY: abd pain COMPARISON: No prior. TECHNIQUE: AP radiograph of the chest, with upright and supine radiographs of the abdomen. 3 views obtained. FINDINGS: CHEST: Lungs: Clear. Cardiovascular: Normal size heart. No pulmonary vascular congestion. No aortic atherosclerotic calcification present Pleura: No pleural fluid. No pneumothorax. Other findings: None. ABDOMEN AND PELVIS: Bowel: Unremarkable bowel gas pattern. No evidence of mechanical obstruction. Free air: None. Bones: Unremarkable. Other findings: None. IMPRESSION: Unremarkable radiographs of chest and abdomen. No evidence of mechanical bowel obstruction.
--- NOTE | 2019-03-07 11:59 | CARD ---
APPROVED REPORT Date of service: 03/05/2019 EKG Measurement Heart [id number] <Conclusion> Normal sinus rhythm Normal ECG
== END 2019-03-06 01:09 | disposition home or self-care (01) ==
LOC: C.ER 22:08
DX: K59.00 Constipation, unspecified (principal); R10.9 Unspecified abdominal pain
CPT/HCPCS: 74022; 80053; 81001; 83690; 85025; 85610; 85730; 93005; 96361; 96374; 96375; 99283; C9113; J1885; J2405; J7030